=== PATIENT | female | born 1935 | race Two or more races ===

== ENCOUNTER → 2022-09-29 | Outpatient (CLI) | payer MEDICARE ==
[~2022-09-29] MED LIST: SODIUM CHLORIDE 0.9% 500 ML 500 ML in EMPTY BAG 1 BAG IV PRN; ZOLEDRONIC ACID 5 MG in SODIUM CHLORIDE 0.9% 100 ML IV NR
[2022-09-29 14:31] VITALS: BP 124/82; PULSE 106; RESP 16; TEMP 97.8
== END ==
LOC: PROCWHC3 13:59
PROVIDERS: ATTEND Family Medicine
DX: M81.0 Age-related osteoporosis without current pathological fracture (principal)
CPT/HCPCS: 96365; J3489

== ENCOUNTER 2023-02-10 13:44 | Inpatient (IN) | payer MEDICARE ==
--- NOTE | 2023-02-10 14:32 | ED ---
General Adult HPI - General Chief complaint: Chest Pain Stated complaint: Chest Pain Time Seen by Provider: 02/10/23 13:46 Source: EMS Mode of arrival: EMS Limitations: no limitations - History of Present Illness Initial comments: Dictation was produced using [employer] dictation software. please excuse any grammatical, word or spelling errors. Chief Complaint: 87-year-old female presents to the ER for chest pain History of Present Illness: 87-year-old female presents with chest pain. Patient is a poor historian. She is brought in from home by EMS. Patient states she called EMS because her chest hurting. Patient describes that several months ago she had some sort of rib surgery and she is unable to explain what the procedure was. States that she has pain to her substernal and left anterior chest. Denies any diaphoresis or nausea. EMS reports that they provided patient with aspirin and nitroglycerin. Patient does not say if her symptoms improved after the nitro. Denies any fever or constitutional symptoms. The ROS documented in this emergency department record has been reviewed and confirmed by me. Those systems with pertinent positive or negative responses have been documented in the HPI. All other systems are other negative and/or noncontributory. - Related Data Home Medications Medication Instructions Recorded Confirmed Apixaban [Eliquis] 2.5 mg PO BID 09/29/22 02/10/23 Furosemide [Lasix] 20 mg PO DAILY 09/29/22 02/10/23 Levothyroxine Sodium 112 mcg PO DAILY 09/29/22 02/10/23 Liothyronine Sodium [Cytomel] 5 mcg PO DAILY 09/29/22 02/10/23 Metoprolol Tartrate 25 mg PO BID 09/29/22 02/10/23 Montelukast [Singulair] 10 mg PO DAILY 09/29/22 02/10/23 Nitroglycerin 0.4 mg SL DIRECTED PRN 09/29/22 02/10/23 Potassium Chloride ER [K-Dur 10] 10 meq PO DAILY 09/29/22 02/10/23 Sertraline [Zoloft] 100 mg PO DAILY 09/29/22 02/10/23 Zoledronic Acid/Mannitol-Water 5 mg IV Q365D 09/29/22 02/10/23 [Reclast 5 mg/100 ml Solution] Albuterol Inhaler [Ventolin Hfa 2 puff INHALATION RT-QID PRN 02/10/23 02/10/23 Inhaler] HYDROcodone/APAP 5-325MG [[place] 1 tab PO DAILY PRN 02/10/23 02/10/23 5-325] Isosorbide Mononitrate ER [Imdur] 30 mg PO BID 02/10/23 02/10/23 Allergies Allergy/AdvReac Type Severity Reaction Status Date / Time Iodinated Contrast Media Allergy Unknown Verified 02/10/23 14:56 sulfamethoxazole Allergy Unknown Verified 02/10/23 14:56 [From Bactrim] trimethoprim [From Bactrim] Allergy Unknown Verified 02/10/23 14:56 Review of Systems ROS Statement: Those systems with pertinent positive or pertinent negative responses have been documented in the HPI. ROS Other: All systems not noted in ROS Statement are negative. Past Medical History Past Medical History: Atrial Fibrillation, Coronary Artery Disease (CAD), Hypertension, Myocardial Infarction ([place]) History of Any Multi-Drug Resistant Organisms: None Reported Past Surgical History: Appendectomy, Cholecystectomy, Heart Catheterization With Stent Additional Past Surgical History / Comment(s): back surgery Past Psychological History: No Psychological Hx Reported Smoking Status: Never smoker Past Alcohol Use History: None Reported Past Drug Use History: None Reported General Exam - General Exam Comments Initial Comments: PHYSICAL EXAM: General Impression: Alert and oriented x3/4, not in acute distress HEENT: Normocephalic atraumatic, extra-ocular movements intact, pupils equal and reactive to light bilaterally, mucous membranes moist. Cardiovascular: Heart regular rate and rhythm Chest: Able to complete full sentences, no retractions, no tachypnea Abdomen: abdomen soft, non-tender, non-distended, no organomegaly Musculoskeletal: Pulses present and equal in all extremities, no peripheral edema Motor: no focal deficits noted Neurological: CN II-XII grossly intact, no focal motor or sensory deficits noted Skin: Intact with no visualized rashes Psych: Normal affect and mood Limitations: no limitations Course Vital Signs 02/10/23 13:48 Temperature 97.7 F Pulse Rate 102 H Respiratory 20 Rate Blood Pressure 144/94 O2 Sat by Pulse 96 Oximetry Medical Decision Making - Medical Decision Making My EKG interpretation: Ventricular rate 97, A. fib, QRS I4, QTC 420. No NE p rolongation, no QTC prolongation, no ST or T-wave changes noted. No old EKG for comparison. Overall, this EKG is unremarkable Was pt. sent in by a medical professional or institution (, [facility], [employer]ER, urgent care, hospital, or fci...) When possible be specific @ -No Did you speak to anyone other than the patient for history (EMS, parent, family, police, friend...)? What history was obtained from this source @ -EMS states the patient is brought here for chest pain Did you review nursing and triage notes (agree or disagree)? Why? @ -I reviewed and agree with nursing and triage notes Were old charts reviewed (outside hosp., previous admission, EMS record, old EKG, old radiological studies, urgent care reports/EKG's, fci records)? Report findings @ -No old charts were reviewed Differential Diagnosis (chest pain, altered mental status, abdominal pain women, abdominal pain men, vaginal bleeding, musculoskeletal, weakness, fever, dyspnea, syncope, headache, dizziness, GI bleed, back pain, seizure, CVA, palpatations, mental health)? @ -Differential Chest Pain: Stable Angina, Unstable Angina, STEMI, NSTEMI Aortic Dissection, Pneumothorax, Musculoskeletal, Esophageal Spasm GERD, Cholecystitis, Pancreatitis, Zoster, this is not meant to be an all-inclusive list. EKG interpreted by me (3pts min.). @ -see above X-rays interpreted by me (1pt min.). @ -2 view chest x-ray is unremarkable for any acute processes CT interpreted by me (1pt min.). @ -None done U/S interpreted by me (1pt. min.). @ -None done What testing was considered but not performed or refused? (CT, X-rays, U/S, labs)? Why? @ -None What meds were considered but not given or refused? Why? @ -None Did you discuss the management of the patient with other professionals (professionals i.e. [facility], [employer]ACHINE [employer]ER, lab, RT, psych nurse, social economist, manager presentation, teacher, security officer, caser)? Give summary @ -Discussed with hospitalist for admission Was smoking cessation discussed for >3mins.? @ -No Was critical care preformed (if so, how long)? @ -No Were there social determinants of health that impacted care today? How? (Homelessness, low income, unemployed, alcoholism, drug addiction, transportation, low edu. Level, literacy, decrease access to med. care, retirement, rehab)? @ -No Was there de-escalation of care discussed even if they declined (Discuss DNR or withdrawal of care, Hospice)? DNR status @ -No What co-morbidities impacted this encounter? (DM, HTN, Smoking, COPD, CAD, Cancer, CVA, ARF, Chemo, Hep., AIDS, mental health diagnosis, sleep apnea, morbid obesity)? @ -None Was patient admitted / discharged? Hospital course, mention meds given and route, prescriptions, significant lab abnormalities, going to OR and other pertinent info. @ -87-year-old female who is a unreliable historian presents to the ER for chest pain. See atypical with typical features. Patient will appear at bed side. Vital signs are stable. EKG is unremarkable. Laboratory evaluation obtained. CBC, coag panel metabolic panel is unremarkable. Troponin is negative. Patient reevaluated at bedside at 3:15 PM she is found to be stable medical condition. Patient be admitted observation for cardiac monitoring and cardiology consultation. Undiagnosed new problem with uncertain prognosis? @ -No Drug Therapy requiring intensive monitoring for toxicity (Heparin, Nitro, Insulin, Cardizem)? @ -No Were any procedures done? @ -No Diagnosis/symptom? Acute, or Chronic, or Acute on Chronic? Uncomplicated (without systemic symptoms) or Complicated (systemic symptoms)? @ -Chest pain Side effects of treatment? @ -No Exacerbation, Progression, or Severe Exacerbation? @ -No Poses a threat to life or bodily function? How? (Chest pain, [place], [place], pneumonia, PE, COPD, DKA, ARF, appy, cholecystitis, CVA, Diverticulitis, Homicidal, Suicidal, threat to staff... and all critical care pts) @ -yes - Lab Data Result diagrams: 02/10/23 14:20 02/10/23 14:20 Lab Results 02/10/23 02/10/23 02/10/23 Range/Units 14:20 14:20 14:20 WBC 5.7 (3.8-10.6) k/uL RBC 4.60 (3.80-5.40) m/uL Hgb 14.2 (11.4-16.0) gm/dL Hct 43.6 (34.0-46.0) % MCV 94.6 (80.0-100.0) fL MCH 30.9 (25.0-35.0) pg MCHC 32.7 (31.0-37.0) g/dL RDW 13.9 (11.5-15.5) % Plt Count 275 (150-450) k/uL MPV 8.8 Neutrophils % 68 % Lymphocytes % 20 % Monocytes % 6 % Eosinophils % 4 % Basophils % 0 % Neutrophils # 3.8 (1.3-7.7) k/uL Lymphocytes # 1.1 (1.0-4.8) k/uL Monocytes # 0.3 (0-1.0) k/uL Eosinophils # 0.2 (0-0.7) k/uL Basophils # 0.0 (0-0.2) k/uL PT 11.0 (10.0-12.5) sec INR 1.0 (<1.2) APTT 28.9 (22.0-30.0) sec Sodium 141 (137-145) mmol/L Potassium 4.4 (3.5-5.1) mmol/L Chloride 106 (98-107) mmol/L Carbon Dioxide 25 (22-30) mmol/L Anion Gap 10 mmol/L BUN 13 (7-17) mg/dL Creatinine 0.61 (0.52-1.04) mg/dL Est GFR (CKD-EPI)AfAm >90 (>60 ml/min/1.73 sqM) Est GFR (CKD-EPI)NonAf 81 (>60 ml/min/1.73 sqM) Glucose 117 H (74-99) mg/dL Calcium 9.3 (8.4-10.2) mg/dL Magnesium 1.9 (1.6-2.3) mg/dL Total Bilirubin 0.7 (0.2-1.3) mg/dL AST 29 (14-36) U/L ALT 18 (4-34) U/L Alkaline Phosphatase 67 (38-126) U/L Troponin I (0.000-0.034) ng/mL Total Protein 7.1 (6.3-8.2) g/dL Albumin 3.9 (3.5-5.0) g/dL Lipase 77 (23-300) U/L 10/28/23 Range/Units 14:20 WBC (3.8-10.6) k/uL RBC (3.80-5.40) m/uL Hgb (11.4-16.0) gm/dL Hct (34.0-46.0) % MCV (80.0-100.0) fL MCH (25.0-35.0) pg MCHC (31.0-37.0) g/dL RDW (11.5-15.5) % Plt Count (150-450) k/uL MPV Neutrophils % % Lymphocytes % % Monocytes % % Eosinophils % % Basophils % % Neutrophils # (1.3-7.7) k/uL Lymphocytes # (1.0-4.8) k/uL Monocytes # (0-1.0) k/uL Eosinophils # (0-0.7) k/uL Basophils # (0-0.2) k/uL PT (10.0-12.5) sec INR (<1.2) APTT (22.0-30.0) sec Sodium (137-145) mmol/L Potassium (3.5-5.1) mmol/L Chloride (98-107) mmol/L Carbon Dioxide (22-30) mmol/L Anion Gap mmol/L BUN (7-17) mg/dL Creatinine (0.52-1.04) mg/dL Est GFR (CKD-EPI)AfAm (>60 ml/min/1.73 sqM) Est GFR (CKD-EPI)NonAf (>60 ml/min/1.73 sqM) Glucose (74-99) mg/dL Calcium (8.4-10.2) mg/dL Magnesium (1.6-2.3) mg/dL Total Bilirubin (0.2-1.3) mg/dL AST (14-36) U/L ALT (4-34) U/L Alkaline Phosphatase (38-126) U/L Troponin I <0.012 (0.000-0.034) ng/mL Total Protein (6.3-8.2) g/dL Albumin (3.5-5.0) g/dL Lipase (23-300) U/L Disposition Clinical Impression: Chest pain Disposition: ADMITTED IP TO THIS HOSP Condition: Fair Referrals: Yessi Mancia MD [Primary Care Provider] - 1-2 days Decision Time: 15:19
[2023-02-10 14:33] LABS: Basophils % (A) 0 %; Eosinophils # (A) 0.2 k/uL (0-0.7); Eosinophils % (A) 4 %; HCT 43.6 % (34.0-46.0); HGB 14.2 gm/dL (11.4-16.0); Lymphocytes # (A) 1.1 k/uL (1.0-4.8); Lymphocytes % (A) 20 %; MCH 30.9 pg (25.0-35.0); MCHC 32.7 g/dL (31.0-37.0); MCV 94.6 fL (80.0-100.0); Mean Platelet Volume 8.8; Monocytes # (A) 0.3 k/uL (0-1.0); Monocytes % (A) 6 %; Neutrophils # (A) 3.8 k/uL (1.3-7.7); Neutrophils % (A) 68 %; Platelet Count 275 k/uL (150-450); RDW 13.9 % (11.5-15.5); WBC 5.7 k/uL (3.8-10.6)
--- NOTE | 2023-02-10 14:40 | XR ---
EXAMINATION TYPE: XR chest 2V DATE OF EXAM: 02/10/2023 COMPARISON: None INDICATION: Chest pain TECHNIQUE: Frontal and lateral views of the chest are obtained. FINDINGS: The heart size is upper limits of normal. The pulmonary vasculature is normal. The lungs are clear. Stimulator leads are within the thoracic region. IMPRESSION: 1. No acute pulmonary process.
[2023-02-10 14:48] LABS: Partial Thromboplastin Time 28.9 sec (22.0-30.0)
[2023-02-10 14:51] LABS: ALT 18 U/L (4-34); AST 29 U/L (14-36); African American GFR (CKD) >90 (>60 ml/min/1.73 sqM); Albumin 3.9 g/dL (3.5-5.0); Alkaline Phosphatase 67 U/L (38-126); Anion Gap 10 mmol/L; Blood Urea Nitrogen 13 mg/dL (7-17); Calcium 9.3 mg/dL (8.4-10.2); Carbon Dioxide 25 mmol/L (22-30); Chloride 106 mmol/L (98-107); Glucose 117 mg/dL (74-99); Lipase 77 U/L (23-300); Magnesium 1.9 mg/dL (1.6-2.3); Non-African American GFR(CKD) 81 (>60 ml/min/1.73 sqM); Potassium 4.4 mmol/L (3.5-5.1); Sodium 141 mmol/L (137-145); Total Bilirubin 0.7 mg/dL (0.2-1.3); Total Protein 7.1 g/dL (6.3-8.2)
[2023-02-10] MEDS ORDERED: NITROGLYCERIN SL TABS 0.4 MG TAB SUBLINGUAL PRN (15:15)
[2023-02-10] MEDS ORDERED: ALBUTEROL HFA INHALER INHALATION PRN (15:46)
[2023-02-10] MEDS ORDERED: HYDROcodone/APAP 5-325MG 1 EACH TAB PO PRN (15:46)
--- NOTE | 2023-02-10 15:57 | P.HPIM ---
History of Present Illness This is a pleasant 87 years old female with past medical history of Atrial Fibrillation, Coronary Artery Disease status post stenting hypertension, Raul pain is about 8/10 for like sharp. Denies trauma. She can move her arm above her head. Short of breath but no coughing. She has total headache but no dizziness weakness or numbness. No urinary or GI symptoms. no smoking. Vitals stable little tachycardic and 100 to came to down to 82 Chest unremarkable CBC, INR, BMP and liver enzymes and troponin EKG showing atrial fibrillation's at [address]-T changes Chest x-ray: No acute process. Review of Systems Review of systems CONSTITUTIONAL: No fever, no malaise, no fatigue. HEENT: No recent visual problems or hearing problems. Denied any sore throat. CARDIOVASCULAR: No orthopnea, PND, no palpitations, no syncope. PULMONARY: No shortness of breath, no cough, no hemoptysis. GASTROINTESTINAL: No diarrhea, no nausea, no vomiting, no abdominal pain. Normoactive bowel sounds. NEUROLOGICAL: No headaches, no weakness, no numbness. HEMATOLOGICAL: Denies any bleeding or petechiae. GENITOURINARY: Denies any burning micturition, frequency, or urgency. MUSCULOSKELETAL/RHEUMATOLOGICAL: Denies any joint pain, swelling, or any muscle pain. ENDOCRINE: Denies any polyuria or polydipsia. Past Medical History Past Medical History: Atrial Fibrillation, Coronary Artery Disease (CAD), Hypertension, Myocardial Infarction ([place]) History of Any Multi-Drug Resistant Organisms: None Reported Past Surgical History: Appendectomy, Cholecystectomy, Heart Catheterization With Stent Additional Past Surgical History / Comment(s): back surgery Past Psychological History: No Psychological Hx Reported Smoking Status: Never smoker Past Alcohol Use History: None Reported Past Drug Use History: None Reported Medications and Allergies Home Medications Medication Instructions Recorded Confirmed Type Apixaban [Eliquis] 2.5 mg PO BID 09/29/22 02/10/23 History Furosemide [Lasix] 20 mg PO DAILY 09/29/22 02/10/23 History Levothyroxine Sodium 112 mcg PO DAILY 09/29/22 02/10/23 History Liothyronine Sodium [Cytomel] 5 mcg PO DAILY 09/29/22 02/10/23 History Metoprolol Tartrate 25 mg PO BID 09/29/22 02/10/23 History Montelukast [Singulair] 10 mg PO DAILY 09/29/22 02/10/23 History Nitroglycerin 0.4 mg SL DIRECTED PRN 09/29/22 02/10/23 History Potassium Chloride ER [K-Dur 10] 10 meq PO DAILY 09/29/22 02/10/23 History Sertraline [Zoloft] 100 mg PO DAILY 09/29/22 02/10/23 History Zoledronic Acid/Mannitol-Water 5 mg IV Q365D 09/29/22 02/10/23 History [Reclast 5 mg/100 ml Solution] Albuterol Inhaler [Ventolin Hfa 2 puff INHALATION RT-QID PRN 02/10/23 02/10/23 History Inhaler] HYDROcodone/APAP 5-325MG [[place] 1 tab PO DAILY PRN 02/10/23 02/10/23 History 5-325] Isosorbide Mononitrate ER [Imdur] 30 mg PO BID 02/10/23 02/10/23 History Allergies Allergy/AdvReac Type Severity Reaction Status Date / Time Iodinated Contrast Media Allergy Unknown Verified 02/10/23 14:56 sulfamethoxazole Allergy Unknown Verified 02/10/23 14:56 [From Bactrim] trimethoprim [From Bactrim] Allergy Unknown Verified 02/10/23 14:56 Physical Exam Vitals: Vital Signs Temp Pulse Resp BP Pulse Ox 02/10/23 15:34 82 20 149/98 95 02/10/23 13:48 97.7 F 102 H 20 144/94 96 Intake and Output 02/10/23 02/10/23 02/10/23 06:59 14:59 22:59 Other: Weight 81.647 kg GENERAL: The patient is alert and oriented x3, not in any acute distress. Well developed, well nourished. HEENT: Pupils are round and equally reacting to light. EOMI. No scleral icterus. No conjunctival pallor. Normocephalic, atraumatic. No pharyngeal erythema. No thyromegaly. CARDIOVASCULAR: S1 and S2 present. No murmurs, rubs, or gallops. PULMONARY: Chest is clear to auscultation, no wheezing , no crackles. ABDOMEN: Soft, nontender, nondistended, normoactive bowel sounds. No palpable organomegaly. MUSCULOSKELETAL: No joint swelling or deformity. EXTREMITIES: No cyanosis, clubbing, or pedal edema. NEUROLOGICAL: Gross neurological examination did not reveal any focal deficits. SKIN: No rashes. no petechiae. Results CBC & Chem 7: 02/10/23 14:20 02/10/23 14:20 Labs: Abnormal Lab Results - Last 24 Hours (Table) 02/10/23 Range/Units 14:20 Glucose 117 H (74-99) mg/dL Assessment and Plan Assessment: Chest pain left shoulder pain/,could be musculoskeletal. rule out cardiac causes Hypertension Chronic atrial fibrillation on a blood thinner at home History of coronary artery disease Plan: Continue with aspirin Echocardiogram Cardiology consult patient is already on eliquis Labs and medication were reviewed.. Continue same treatment. Continue with symptomatic treatment. Resume home medication. Monitor labs and vitals. DVT and GI prophylaxis. Further recommendations as per clinical course of the patient DVT prophylaxis: eliquis GI Prophylaxis: Pepcid Prognosis is guarded
[2023-02-10] MEDS: APIXABAN 2.5 MG TABLET PO SCH (21:58)
[2023-02-10] MEDS: ISOSORBIDE MONONITRATE ER 30 MG TAB.ER.24H PO SCH (21:58)
[2023-02-10] MEDS: METOPROLOL TARTRATE 25 MG TAB PO SCH (21:59)
[2023-02-11] MEDS: LEVOTHYROXINE 112 MCG TAB PO SCH (05:43)
[2023-02-11] MEDS ORDERED: ASPIRIN 325 MG TAB PO SCH (09:00)
[2023-02-11] MEDS: SERTRALINE 100 MG TAB PO SCH (09:09)
[2023-02-11] MEDS: POTASSIUM CHLORIDE ER 10 MEQ TAB.ER.PRT PO SCH (09:09)
[2023-02-11] MEDS: ISOSORBIDE MONONITRATE ER 30 MG TAB.ER.24H PO SCH ×2 (09:10→20:50)
[2023-02-11] MEDS: METOPROLOL TARTRATE 25 MG TAB PO SCH ×2 (09:10→18:47)
[2023-02-11] MEDS: MONTELUKAST 10 MG TAB PO SCH (09:10)
[2023-02-11] MEDS: APIXABAN 2.5 MG TABLET PO SCH ×2 (09:10→20:50)
[2023-02-11] MEDS: FAMOTIDINE 20 MG/2 ML VIAL IV SCH (09:10)
[2023-02-11] MEDS: FUROSEMIDE 20 MG TAB PO SCH (09:10)
[2023-02-11 09:39] LABS: Chol/HDL Ratio 2.84 Ratio; LDL Cholesterol,Calculated 114.7 mg/dL (0.0-131.0)
--- NOTE | 2023-02-11 12:00 | P.CRDCN ---
History of Present Illness Consult date: 02/11/23 Consult reason: chest pain Chief complaint: left shoulder pain History of present illness: History of present illness: Patient is a pleasant 87-year-old female with significant past medical history of atrial fibrillation on Eliquis, CAD status post PCI 5 we'll she was in [place] years ago, hypertension presented to the emergency department with complaints of chest pain. Patient is a poor historian and has what appears to be memory issues. She does report that she has having left shoulder pains that come and go and radiates to her back. She is unable to provide any further details regarding her pain. She has been feeling fatigued. She denies any shortness of breath, dizziness, syncope. EKG shows atrial fibrillation 83 beats per minutes. Chest x-ray with no acute findings. Labs reviewed: Troponin negative 3, potassium 4.4, creatinine 0.61, LDL 114, lipase 77. Per ED report patient was given aspirin and nitroglycerin by EMS however patient was unable to state if her symptoms improved. REVIEW OF SYSTEMS: No fever or chills. No cough or expectoration. No diaphoresis. Patient denies headache, dizziness, blurred vision, double vision. Patient denies any stomach discomfort. No nausea, vomiting. No hematochezia. No hematemesis. Denies any black stools or blood in his stools. Denies dysuria or hematuria. No muscle weakness or numbness. No chest pain or pressure. Reports left shoulder pain. PHYSICAL EXAMINATION: This is a 87-year-old female in no apparent distress at the time of my examination. HEENT: Head is atraumatic, normocephalic. Pupils are equal, round. Sclerae anicteric. Conjunctivae are clear. Mucous membranes of the mouth are moist. Neck is supple. There is no jugular venous distention. No carotid bruit is heard. CHEST EXAMINATION: Lungs are clear to auscultation. No chest wall tenderness is noted on palpation or with deep breathing. HEART EXAMINATION: Heart regular rate and rhythm. S1, S2 heard. No murmurs, gallops or rub. ABDOMEN: Soft, nontender. Bowel sounds are heard. EXTREMITIES: 2+ peripheral pulses with no evidence of peripheral edema and no calf tenderness noted. She does have left shoulder tenderness on exam. NEUROLOGIC EXAMINATION: Patient is awake, alert, poor recall of events and history. IMPRESSION AND PLAN: Paroxysmal atrial fibrillation, currently in A. fib, rate controlled CAD status post multiple stents done in [place] Hypertension Chest pain, atypical Left shoulder pain PLAN: Cardiac enzymes negative 3. Continue current regimen. Today pain appears to be more left shoulder radiating to her back, pain is reproducible on exam. We will check echocardiogram to evaluate heart function and structure. Continue to monitor overnight. Possible discharge tomorrow if echo unremarkable patient remains stable. I am dictating on behalf of Dr. Chano Edmondson's history/physical and assessment/plan. Past Medical History Past Medical History: Atrial Fibrillation, Coronary Artery Disease (CAD), Hy pertension, Myocardial Infarction (VT) Last Myocardial Infarction Date:: n/a History of Any Multi-Drug Resistant Organisms: None Reported Past Surgical History: Appendectomy, Cholecystectomy, Heart Catheterization With Stent Additional Past Surgical History / Comment(s): back surgery Date of Last Stent Placement:: n/a Past Psychological History: No Psychological Hx Reported Smoking Status: Never smoker Past Alcohol Use History: None Reported Past Drug Use History: None Reported Medications and Allergies Home Medications Medication Instructions Recorded Confirmed Type Apixaban [Eliquis] 2.5 mg PO BID 09/29/22 02/10/23 History Furosemide [Lasix] 20 mg PO DAILY 09/29/22 02/10/23 History Levothyroxine Sodium 112 mcg PO DAILY 09/29/22 02/10/23 History Liothyronine Sodium [Cytomel] 5 mcg PO DAILY 09/29/22 02/10/23 History Metoprolol Tartrate 25 mg PO BID 09/29/22 02/10/23 History Montelukast [Singulair] 10 mg PO DAILY 09/29/22 02/10/23 History Nitroglycerin 0.4 mg SL DIRECTED PRN 09/29/22 02/10/23 History Potassium Chloride ER [K-Dur 10] 10 meq PO DAILY 09/29/22 02/10/23 History Sertraline [Zoloft] 100 mg PO DAILY 09/29/22 02/10/23 History Zoledronic Acid/Mannitol-Water 5 mg IV Q365D 09/29/22 02/10/23 History [Reclast 5 mg/100 ml Solution] Albuterol Inhaler [Ventolin Hfa 2 puff INHALATION RT-QID PRN 02/10/23 02/10/23 History Inhaler] Cetirizine HCl [Zyrtec] 10 mg PO DAILY 02/10/23 02/10/23 History Cholecalciferol [Vitamin D3 (25 50 mcg PO DAILY 02/10/23 02/10/23 History Mcg = 1000 Iu)] Cyanocobalamin (Vitamin B-12) 1,000 mcg PO DAILY 02/10/23 02/10/23 History [Vitamin B-12] Elderberry 1,000mg 1,000 mg PO DAILY 02/10/23 02/10/23 History HYDROcodone/APAP 5-325MG [[place] 0.5 - 1 tab PO DAILY PRN 02/10/23 02/10/23 History 5-325] Isosorbide Mononitrate ER [Imdur] 30 mg PO BID 02/10/23 02/10/23 History Multivitamins, Thera [Multivitamin 1 tab PO DAILY 02/10/23 02/10/23 History (formulary)] Pantoprazole [Protonix] 40 mg PO DAILY PRN 02/10/23 02/10/23 History Vit C/E/Zn/Coppr/Lutein/Zeaxan 1 cap PO BID 02/10/23 02/10/23 History [Preservision Areds 2 Softgel] Allergies Allergy/AdvReac Type Severity Reaction Status Date / Time Iodinated Contrast Media Allergy Unknown Verified 02/10/23 14:56 sulfamethoxazole Allergy Unknown Verified 02/10/23 14:56 [From Bactrim] trimethoprim [From Bactrim] Allergy Unknown Verified 02/10/23 14:56 Physical Exam Vitals: Vital Signs Temp Pulse Pulse Resp BP BP Pulse Ox 02/11/23 07:00 98.3 F 63 16 140/81 95 02/11/23 02:01 97.8 F 66 16 123/71 95 02/11/23 01:10 16 02/10/23 22:53 97.7 F 81 16 154/85 95 02/10/23 22:00 95 18 170/98 97 02/10/23 20:00 95 18 174/95 97 02/10/23 18:39 84 20 174/95 96 02/10/23 15:34 82 20 149/98 95 02/10/23 13:48 97.7 F 102 H 20 144/94 96 Intake and Output 02/10/23 02/11/23 02/11/23 22:59 06:59 14:59 Other: Voiding Method Toilet # Voids 2 Weight 81.647 kg Results 02/10/23 14:20 02/10/23 14:20 Cardiac Enzymes 02/10/23 02/10/23 02/10/23 Range/Units 14:20 14:20 15:49 AST 29 (14-36) U/L Troponin I <0.012 <0.012 (0.000-0.034) ng/mL 02/10/23 Range/Units 18:09 AST (14-36) U/L Troponin I <0.012 (0.000-0.034) ng/mL Coagulation 02/10/23 Range/Units 14:20 PT 11.0 (10.0-12.5) sec APTT 28.9 (22.0-30.0) sec Lipids 02/11/23 Range/Units 05:38 Triglycerides 130.00 (0.00-149.00) mg/dL Cholesterol 217.00 H (0.00-200.00) mg/dL HDL Cholesterol 76.30 H (40.00-60.00) mg/dL Cholesterol/HDL Ratio 2.84 Ratio CBC 02/10/23 Range/Units 14:20 WBC 5.7 (3.8-10.6) k/uL RBC 4.60 (3.80-5.40) m/uL Hgb 14.2 (11.4-16.0) gm/dL Hct 43.6 (34.0-46.0) % Plt Count 275 (150-450) k/uL Comprehensive Metabolic Panel 02/10/23 Range/Units 14:20 Sodium 141 (137-145) mmol/L Potassium 4.4 (3.5-5.1) mmol/L Chloride 106 (98-107) mmol/L Carbon Dioxide 25 (22-30) mmol/L BUN 13 (7-17) mg/dL Creatinine 0.61 (0.52-1.04) mg/dL Glucose 117 H (74-99) mg/dL Calcium 9.3 (8.4-10.2) mg/dL AST 29 (14-36) U/L ALT 18 (4-34) U/L Alkaline Phosphatase 67 (38-126) U/L Total Protein 7.1 (6.3-8.2) g/dL Albumin 3.9 (3.5-5.0) g/dL Current Medications Generic Name Dose Route Start Last Admin Trade Name Freq PRN Reason Stop Dose Admin Hydrocodone Bitart/Acetaminophen 1 each 02/10/23 15:46 02/10/23 23:29 Hydrocodone/Apap 5-325mg 1 Each Tab PO 1 each DAILY PRN Administration Pain Albuterol Sulfate 2 puff 02/10/23 15:46 Albuterol Hfa Inhaler INHALATION RT-QID PRN Shortness Of Breath Apixaban 2.5 mg 02/10/23 21:00 02/11/23 09:10 Apixaban 2.5 Mg Tablet PO 2.5 mg BID JUAN CARLOS Administration Protocol Aspirin 325 mg 02/11/23 09:00 02/11/23 09:10 Aspirin 325 Mg Tab PO 325 mg DAILY JUAN CARLOS Administration Famotidine 20 mg 02/11/23 09:00 02/11/23 09:10 Famotidine 20 Mg/2 Ml Vial IV 20 mg DAILY JUAN CARLOS Administration Furosemide 20 mg 02/11/23 09:00 02/11/23 09:10 Furosemide 20 Mg Tab PO 20 mg DAILY JUAN CARLOS Administration Isosorbide Mononitrate 30 mg 02/10/23 21:00 02/11/23 09:10 Isosorbide Mononitrate Er 30 Mg Tab.Er.24h PO 30 mg BID JUAN CARLOS Administration Levothyroxine Sodium 112 mcg 02/11/23 06:30 02/11/23 05:43 Levothyroxine 112 Mcg Tab PO 112 mcg DAILY@0630 JUAN CARLOS Administration Metoprolol Tartrate 25 mg 02/10/23 21:00 02/11/23 09:10 Metoprolol Tartrate 25 Mg Tab PO 25 mg BID JUAN CARLOS Administration Montelukast Sodium 10 mg 02/11/23 09:00 02/11/23 09:10 Montelukast 10 Mg Tab PO 10 mg DAILY JUAN CARLOS Administration Nitroglycerin 0.4 mg 02/10/23 15:15 02/10/23 18:40 Nitroglycerin Sl Tabs 0.4 Mg Tab SUBLINGUAL 0.4 mg Q5M PRN Administration Chest Pain Potassium Chloride 10 meq 02/11/23 09:00 02/11/23 09:09 Potassium Chloride Er 10 Meq Tab.Er.Prt PO 10 meq DAILY JUAN CARLOS Administration Sertraline HCl 100 mg 02/11/23 09:00 02/11/23 09:09 Sertraline 100 Mg Tab PO 100 mg DAILY JUAN CARLOS Administration Intake and Output 02/10/23 02/11/23 02/11/23 22:59 06:59 14:59 Other: Voiding Method Toilet # Voids 2 Weight 81.647 kg 02/10/23 14:20 02/10/23 14:20
--- NOTE | 2023-02-11 14:14 | P.PN ---
Subjective This is a pleasant 87 years old female with past medical history of Atrial Fibrillation, Coronary Artery Disease status post stenting hypertension, Raul pain is about 8/10 for like sharp. Denies trauma. She can move her arm above her head. Short of breath but no coughing. She has total headache but no dizziness weakness or numbness. No urinary or GI symptoms. no smoking. Vitals stable little tachycardic and 100 to came to down to 82 Chest unremarkable CBC, INR, BMP and liver enzymes and troponin EKG showing atrial fibrillation's at [address]-T changes Chest x-ray: No acute process. 02/11/2023 Patient feels better. No chest pain. left shoulder pain looks Better about 6/10. She can move her arm freely even above her head. no new complaint. Cardiology team recommended echocardiogram and possible discharge tomorrow I requested placement, PT/OT is requested Objective - Vital Signs Vital signs: Vital Signs Temp 98.3 F 02/11/23 07:00 Pulse 63 02/11/23 07:00 Resp 16 02/11/23 07:00 BP 140/81 02/11/23 07:00 Pulse Ox 95 02/11/23 07:00 FiO2 Intake & Output 02/10/23 02/11/23 02/11/23 18:59 06:59 18:59 Weight 81.647 kg Other: Voiding Method Toilet # Voids 2 - Exam GENERAL: The patient is alert and oriented x3, not in any acute distress. Well d eveloped, well nourished. HEENT: Pupils are round and equally reacting to light. EOMI. No scleral icterus. No conjunctival pallor. Normocephalic, atraumatic. No pharyngeal erythema. No thyromegaly. CARDIOVASCULAR: S1 and S2 present. No murmurs, rubs, or gallops. PULMONARY: Chest is clear to auscultation, no wheezing , no crackles. ABDOMEN: Soft, nontender, nondistended, normoactive bowel sounds. No palpable organomegaly. MUSCULOSKELETAL: No joint swelling or deformity. EXTREMITIES: No cyanosis, clubbing, or pedal edema. NEUROLOGICAL: Gross neurological examination did not reveal any focal deficits. SKIN: No rashes. no petechiae. - Labs CBC & Chem 7: 02/10/23 14:20 10/28/23 14:20 Labs: Abnormal Lab Results - Last 24 Hours (Table) 02/10/23 02/11/23 Range/Units 14:20 05:38 Glucose 117 H (74-99) mg/dL Cholesterol 217.00 H (0.00-200.00) mg/dL HDL Cholesterol 76.30 H (40.00-60.00) mg/dL Assessment and Plan Assessment: Chest pain left shoulder pain/,could be musculoskeletal. 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 Continue same treatment. Continue with symptomatic treatment. Resume home medication. Monitor labs and vitals. DVT and GI prophylaxis. Further recommendations as per clinical course of the patient DVT prophylaxis: eliquis GI Prophylaxis: Pepcid Prognosis is guarded
[2023-02-12] MEDS: LEVOTHYROXINE 112 MCG TAB PO SCH (05:39)
[2023-02-12] MEDS: ISOSORBIDE MONONITRATE ER 30 MG TAB.ER.24H PO SCH ×2 (08:29→20:08)
[2023-02-12] MEDS: METOPROLOL TARTRATE 25 MG TAB PO SCH ×2 (08:29→18:55)
[2023-02-12] MEDS: ASPIRIN 81 MG PO SCH (08:29)
[2023-02-12] MEDS: MONTELUKAST 10 MG TAB PO SCH (08:29)
[2023-02-12] MEDS: FUROSEMIDE 20 MG TAB PO SCH (08:30)
[2023-02-12] MEDS: POTASSIUM CHLORIDE ER 10 MEQ TAB.ER.PRT PO SCH (08:30)
[2023-02-12] MEDS: FAMOTIDINE 20 MG/2 ML VIAL IV SCH (08:30)
[2023-02-12] MEDS: APIXABAN 2.5 MG TABLET PO SCH ×2 (08:30→20:08)
[2023-02-12] MEDS: SERTRALINE 100 MG TAB PO SCH (08:30)
--- NOTE | 2023-02-12 12:29 | P.PN ---
Subjective This is a pleasant 87 years old female with past medical history of Atrial Fibrillation, Coronary Artery Disease status post stenting hypertension, Raul pain is about 8/10 for like sharp. Denies trauma. She can move her arm above her head. Short of breath but no coughing. She has total headache but no dizziness weakness or numbness. No urinary or GI symptoms. no smoking. Vitals stable little tachycardic and 100 to came to down to 82 Chest unremarkable CBC, INR, BMP and liver enzymes and troponin EKG showing atrial fibrillation's at [address]-T changes Chest x-ray: No acute process. 02/11/2023 Patient feels better. No chest pain. left shoulder pain looks Better about 6/10. She can move her arm freely even above her head. no new complaint. 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 Could be suprapubic pain. Patient also was noticed to be tachypneic. As per staff he went to the bathroom about 4-5 times but she had occasional little amount of loose stool. She denies chest pain or coughing today. Review of systems CONSTITUTIONAL: No fever, no malaise, no fatigue. HEENT: No recent visual problems or hearing problems. Denied any sore throat. CARDIOVASCULAR: No orthopnea, PND, no palpitations, no syncope. PULMONARY: no cough, no hemoptysis. GASTROINTESTINAL: No diarrhea, no nausea, no vomiting, no abdominal pain. Normoactive bowel sounds. NEUROLOGICAL: No headaches, no weakness, no numbness. HEMATOLOGICAL: Denies any bleeding or petechiae. GENITOURINARY: Denies any burning micturition, frequency, or urgency. MUSCULOSKELETAL/RHEUMATOLOGICAL: Denies any joint pain, swelling, or any muscle pain. ENDOCRINE: Denies any polyuria or polydipsia. Active Medications Generic Name Dose Route Start Last Admin Trade Name Freq PRN Reason Stop Dose Admin Hydrocodone Bitart/Acetaminophen 1 each 02/10/23 15:46 02/10/23 23:29 Hydrocodone/Apap 5-325mg 1 Each Tab PO 1 each DAILY PRN Administration Pain Albuterol Sulfate 2 puff 02/10/23 15:46 Albuterol Hfa Inhaler INHALATION RT-QID PRN Shortness Of Breath Apixaban 2.5 mg 02/10/23 21:00 02/12/23 08:30 Apixaban 2.5 Mg Tablet PO 2.5 mg BID JUAN CARLOS Administration Protocol Aspirin 81 mg 02/12/23 09:00 02/12/23 08:29 Aspirin 81 Mg PO 81 mg DAILY JUAN CARLOS Administration Famotidine 20 mg 02/11/23 09:00 02/12/23 08:30 Famotidine 20 Mg/2 Ml Vial IV 20 mg DAILY JUAN ACRLOS Administration Furosemide 20 mg 02/11/23 09:00 02/12/23 08:30 Furosemide 20 Mg Tab PO 20 mg DAILY JUAN CARLOS Administration Isosorbide Mononitrate 30 mg 02/10/23 21:00 02/12/23 08:29 Isosorbide Mononitrate Er 30 Mg Tab.Er.24h PO 30 mg BID JUAN CARLOS Administration Levothyroxine Sodium 112 mcg 02/11/23 06:30 02/12/23 05:39 Levothyroxine 112 Mcg Tab PO 112 mcg DAILY@0630 JUAN CARLOS Administration Metoprolol Tartrate 25 mg 02/10/23 21:00 02/12/23 08:29 Metoprolol Tartrate 25 Mg Tab PO 25 mg BID JUAN CARLOS Administration Montelukast Sodium 10 mg 02/11/23 09:00 02/12/23 08:29 Montelukast 10 Mg Tab PO 10 mg DAILY JUAN CARLOS Administration Nitroglycerin 0.4 mg 02/10/23 15:15 02/10/23 18:40 Nitroglycerin Sl Tabs 0.4 Mg Tab SUBLINGUAL 0.4 mg Q5M PRN Administration Chest Pain Potassium Chloride 10 meq 02/11/23 09:00 02/12/23 08:30 Potassium Chloride Er 10 Meq Tab.Er.Prt PO 10 meq DAILY JUAN CARLOS Administration Sertraline HCl 100 mg 02/11/23 09:00 02/12/23 08:30 Sertraline 100 Mg Tab PO 100 mg DAILY JUAN CARLOS Administration Objective - Vital Signs Vital signs: Vital Signs Temp 97.3 F L 02/12/23 07:20 Pulse 76 02/12/23 07:20 Resp 18 02/12/23 08:00 BP 123/73 02/12/23 07:20 Pulse Ox 93 L 02/12/23 07:20 FiO2 Intake & Output 02/11/23 02/12/23 02/12/23 18:59 06:59 18:59 Intake Total 118 Balance 118 Intake: Oral 118 Other: Voiding Method Toilet Toilet Toilet # Voids 1 1 - Exam GENERAL: The patient is alert and oriented x3, not in any acute distress. Well developed, well nourished. HEENT: Pupils are round and equally reacting to light. EOMI. No scleral icterus. No conjunctival pallor. Normocephalic, atraumatic. No pharyngeal erythema. No thyromegaly. CARDIOVASCULAR: S1 and S2 present. No murmurs, rubs, or gallops. PULMONARY: Chest is clear to auscultation, no wheezing , no crackles. ABDOMEN: Soft, nontender, nondistended, normoactive bowel sounds. No palpable organomegaly. MUSCULOSKELETAL: No joint swelling or deformity. EXTREMITIES: No cyanosis, clubbing, or pedal edema. NEUROLOGICAL: Gross neurological examination did not reveal any focal deficits. SKIN: No rashes. no petechiae. - Labs CBC & Chem 7: 02/10/23 14:20 02/10/23 14:20 Assessment and Plan Assessment: Chest pain left shoulder pain/,could be musculoskeletal. 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 Continue same treatment. Continue with symptomatic treatment. Resume home medication. Monitor labs and vitals. DVT and GI prophylaxis. Further recommendations as per clinical course of the patient DVT prophylaxis: eliquis GI Prophylaxis: Pepcid Prognosis is guarded
--- NOTE | 2023-02-12 13:09 | XR ---
EXAMINATION TYPE: XR chest 1V DATE OF EXAM: 02/12/2023 12:49 PM CLINICAL INDICATION:Female, 87 years old with history of tachypnea; [facility] COMPARISON: Chest radiographs from 02/02/2023. TECHNIQUE: XR chest 1V Frontal view of the chest. FINDINGS: Lungs/Pleura: Prominent interstitial lung markings are seen scattered throughout the lungs with jamie ening of the diaphragm and increased lucency of the lung apices. No evidence of focal consolidation, pneumothorax or pleural effusion. Pulmonary vascularity: Unremarkable. Heart/mediastinum: Cardiomediastinal silhouette is unremarkable. A loop recorder projects over the le ft thorax over the heart. Musculoskeletal: No acute osseous pathology. Fixation hardware of the lumbar spine and cervical spine present. Other findings: Stimulator device leads project over the spine. IMPRESSION: 1. No acute cardiopulmonary disease process. 2. COPD changes.
--- NOTE | 2023-02-12 13:53 | XR ---
EXAMINATION TYPE: XR shoulder limited LT DATE OF EXAM: 02/12/2023 12:49 PM CLINICAL INDICATION:Female, 87 years old with history of pain; [facility] COMPARISON: None TECHNIQUE: XR shoulder limited LT; shoulder was examined in AP, internally rotated and scapular Y pr ojections. FINDINGS: No evidence of acute osseous pathology, joint dislocation, or soft tissue swelling. The remaining por tions of the visualized chest are unremarkable. Mild degeneration changes with osteophyte formation. Loop recorder projects over the heart. IMPRESSION: No acute osseous pathology. Mild left shoulder is atherosclerosis.
--- NOTE | 2023-02-12 14:12 | P.PN ---
Subjective Progress Note Date: 02/12/23 History of present illness: Patient is a pleasant 87-year-old female with significant past medical history of atrial fibrillation on Eliquis, CAD status post PCI 5 we'll she was in [place] years ago, hypertension presented to the emergency department with complaints of chest pain. Patient is a poor historian and has what appears to be memory issues. She does report that she has having left shoulder pains that come and go and radiates to her back. She is unable to provide any further details regarding her pain. She has been feeling fatigued. She denies any shortness of breath, dizziness, syncope. EKG shows atrial fibrillation 83 beats per minutes. Chest x-ray with no acute findings. Labs reviewed: Troponin negative 3, potassium 4.4, creatinine 0.61, LDL 114, lipase 77. Per ED report patient was given aspirin and nitroglycerin by EMS however patient was unable to state if her symptoms improved. 02/12 Patient is seen today in follow-up. She denies having any chest pain, no shortness of breath. She is working with physical therapy this morning. Echocardiogram is pending. Heart rate is in the 70s to 90s, blood pressure 123/73. PHYSICAL EXAMINATION: This is a 87-year-old female in no apparent distress at the time of my examination. HEENT: Head is atraumatic, normocephalic. Pupils are equal, round. Sclerae anicteric. Conjunctivae are clear. Mucous membranes of the mouth are moist. Neck is supple. There is no jugular venous distention. No carotid bruit is heard. CHEST EXAMINATION: Lungs are clear to auscultation. No chest wall tenderness is noted on palpation or with deep breathing. HEART EXAMINATION: Heart regular rate and rhythm. S1, S2 heard. No murmurs, gallops or rub. ABDOMEN: Soft, nontender. Bowel sounds are heard. EXTREMITIES: 2+ peripheral pulses with no evidence of peripheral edema and no calf tenderness noted. She does have left shoulder tenderness on exam. NEUROLOGIC EXAMINATION: Patient is awake, alert, poor recall of events and history. IMPRESSION AND PLAN: Paroxysmal atrial fibrillation, currently in A. fib, rate controlled CAD status post multiple stents done in [place] Hypertension Chest pain, atypical Left shoulder pain PLAN: If echocardiogram is unremarkable, patient is cleared for discharge from cardiology Patient may follow the office and 1-2 weeks. Nurse practitioner note has been reviewed, I agree with the documented findings and plan of care. Patient was seen and examined. Objective - Vital Signs Vital signs: Vital Signs Temp 97.9 F 02/12/23 02:00 Pulse 94 02/12/23 02:00 Resp 16 02/12/23 02:00 BP 120/71 02/12/23 02:00 Pulse Ox 94 L 02/12/23 02:00 FiO2 Intake & Output 02/11/23 02/12/23 02/12/23 18:59 06:59 18:59 Other: Voiding Method Toilet Toilet # Voids 1 1 - Labs CBC & Chem 7: 02/10/23 14:20 02/10/23 14:20 Labs: Abnormal Lab Results - Last 24 Hours (Table) 02/11/23 Range/Units 05:38 Cholesterol 217.00 H (0.00-200.00) mg/dL HDL Cholesterol 76.30 H (40.00-60.00) mg/dL
[2023-02-12 18:04] LABS: Appearance,Urine Clear (Clear); Bilirubin,Urine Negative (Negative); Blood,Urine Negative (Negative); Color,Urine Yellow; Glucose,Urine (UA) Negative (Negative); Ketones,Urine Negative (Negative); Leukocyte Esterase,Urine Negative (Negative); Nitrite,Urine Negative (Negative); Protein,Urine Negative (Negative); Specific Gravity,Urine 1.012 (1.001-1.035); Urobilinogen,Urine <2.0 mg/dL (<2.0)
--- NOTE | 2023-02-12 19:21 | CA ---
Transthoracic Echo Report Name: Isabella Burt Age: 87 Gender: F : 1935 Exam Date: 02/12/2023 15:51 Exam Location: [facility] Ht (in): 63 Wt (lb): 180 Ordering Physician: Trinidad Trammell Attending/Referring Phys: Paper Wrapping Machine Operator Blanco Chawla Procedure CPT: Indications: Chest Pain Cardiac Hx: Technical Quality: Fair Contrast 1: Total Dose (mL): Contrast 2: Total Dose (mL): MEASUREMENTS (Male / Female) Normal Values 2D ECHO LV Diastolic Diameter PLAX 4.1 cm 4.2 - 5.9 / 3.9 - 5.3 cm IVS Diastolic Thickness 0.9 cm 0.6 - 1.0 / 0.6 - 0.9 cm LVPW Diastolic Thickness 0.8 cm 0.6 - 1.0 / 0.6 - 0.9 cm LV Relative Wall Thickness 0.4 RV Internal Dim ED PLAX 2.4 cm LVOT Diameter 2.0 cm Aortic Root Diameter 3.3 cm LA Systolic Diameter LX 2.9 cm 3.0 - 4.0 / 2.7 - 3.8 cm LV Diastolic Volume MOD BP 41.4 cm??? 67 - 155 / 56 - 104 cm??? LV Systolic Volume MOD BP 25.7 cm??? 22 - 58 / 19 - 49 cm??? LV Ejection Fraction MOD BP 37.9 % >= 55 % LV Cardiac Index MOD BP 768.6 cm???/min???m??? LV Diastolic Volume MOD 4C 35.3 cm??? LV Systolic Volume MOD 4C 18.3 cm??? LV Ejection Fraction MOD 4C 48.0 % LV Cardiac Index MOD 4C 831.9 cm???/min???m??? LV Diastolic Length 4C 5.3 cm LV Systolic Length 4C 4.8 cm LV Diastolic Volume MOD 2C 46.1 cm??? LV Systolic Volume MOD 2C 32.5 cm??? LV Ejection Fraction MOD 2C 29.5 % LV Cardiac Index MOD 2C 666.8 cm???/min???m??? LV Diastolic Length 2C 5.6 cm LV Systolic Length 2C 5.4 cm LA Volume 67.1 cm??? 18 - 58 / 22 - 52 cm??? LA Volume Index 34.7 cm???/m??? 16 - 28 cm???/m??? Ascending Aorta Diameter 3.2 cm DOPPLER AV Peak Velocity 182.6 cm/s AV Peak Gradient 13.3 mmHg LVOT Peak Velocity 58.5 cm/s LVOT Peak Gradient 1.4 mmHg LVOT Velocity Time Integral 12.4 cm LVOT Stroke Volume 40.5 cm??? LVOT Stroke Volume Index 21.9 ml/m??? LVOT Cardiac Index 1985.9 cm???/min???m??? AV Area Cont Eq pk 1.0 cm??? MV Peak Velocity 89.8 cm/s MV Peak Gradient 3.2 mmHg MV Mean Velocity 41.8 cm/s MV Mean Gradient 0.9 mmHg MV Velocity Time Integral 21.6 cm MR Peak Velocity 395.7 cm/s MR Peak Gradient 62.6 mmHg Mitral E Point Velocity 88.0 cm/s Mitral A Point Velocity 22.7 cm/s Mitral E to A Ratio 3.9 MV Deceleration Time 228.6 ms PV Peak Velocity 80.1 cm/s PV Peak Gradient 2.6 mmHg FINDINGS Left Ventricle Normal LV size and wall thickness. Left ventricular ejection fraction is estimated at 45-50%, mild global hypokinesis Right Ventricle Normal right ventricular size. Right Atrium RA Area= 16cm2 Left Atrium Moderately increased left atrial volume. LA volume index= 36ml/m2 Mitral Valve Structurally normal mitral valve. Mild MR. Aortic Valve Trileaflet aortic valve. Mild to moderate AV sclerosis/calcification. AV peak gradient= 13.3mmHg.No aortic valve stenosis or regurgitation. Tricuspid Valve Structurally normal tricuspid valve. Mild TR. Pulmonic Valve Pulmonic valve not well visualized. Mild PI. Pericardium Normal pericardium. Aorta Normal size aortic root. CONCLUSIONS 1. Mild left ventricular systolic dysfunction with mild global hypokinesis 2. Mild mitral and tricuspid regurgitation 3. No pericardial effusion Previewed by: Dr. Mikhail Henley MD (Electronically Signed) Final Date: 12 February 2023 19:20
[2023-02-12] MEDS: FUROSEMIDE 10 MG/ML 2 ML VIAL IV SCH ×2 (20:07→20:15)
[2023-02-13] MEDS: LEVOTHYROXINE 112 MCG TAB PO SCH (06:23)
[2023-02-13] MEDS: ISOSORBIDE MONONITRATE ER 30 MG TAB.ER.24H PO SCH (09:58)
[2023-02-13] MEDS: ASPIRIN 81 MG PO SCH (09:58)
[2023-02-13] MEDS: FUROSEMIDE 10 MG/ML 2 ML VIAL IV SCH (09:58)
[2023-02-13] MEDS: SERTRALINE 100 MG TAB PO SCH (09:58)
[2023-02-13] MEDS: POTASSIUM CHLORIDE ER 10 MEQ TAB.ER.PRT PO SCH (09:58)
[2023-02-13] MEDS: APIXABAN 2.5 MG TABLET PO SCH (09:59)
[2023-02-13] MEDS: METOPROLOL TARTRATE 25 MG TAB PO SCH (09:59)
[2023-02-13] MEDS: FAMOTIDINE 20 MG/2 ML VIAL IV SCH (09:59)
[2023-02-13] MEDS: MONTELUKAST 10 MG TAB PO SCH (09:59)
--- NOTE | 2023-02-13 10:22 | P.PN ---
Subjective Progress Note Date: 02/13/23 History of present illness: Patient is a pleasant 87-year-old female with significant past medical history of atrial fibrillation on Eliquis, CAD status post PCI 5 we'll she was in [place] years ago, hypertension presented to the emergency department with complaints of chest pain. Patient is a poor historian and has what appears to be memory issues. She does report that she has having left shoulder pains that come and go and radiates to her back. She is unable to provide any further details regarding her pain. She has been feeling fatigued. She denies any shortness of breath, dizziness, syncope. EKG shows atrial fibrillation 83 beats per minutes. Chest x-ray with no acute findings. Labs reviewed: Troponin negative 3, potassium 4.4, creatinine 0.61, LDL 114, lipase 77. Per ED report patient was given aspirin and nitroglycerin by EMS however patient was unable to state if her symptoms improved. 02/12 Patient is seen today in follow-up. She denies having any chest pain, no shortness of breath. She is working with physical therapy this morning. Echocardiogram is pending. Heart rate is in the 70s to 90s, blood pressure 123/73. 02/13 patient is seen in follow-up today. She remains in atrial fibrillation mostly in the 90s but occasionally has a brief period of 120s to 130s with one occurring on Sunday and one on Sunday. Pulse ox is 96% on room air, blood pressure 132/74. Patient states she has a little bit of pressure at rest not with activity. No shortness of breath. She did not sleep well last night. Echocardiogram revealsmild left ventricular systolic dysfunction with mild global hypokinesis. Mild mitral and tricuspid regurgitation. No pericardial effusion. PHYSICAL EXAMINATION: This is a 87-year-old female in no apparent distress at the time of my examination. HEENT: Head is atraumatic, normocephalic. Pupils are equal, round. Sclerae anicteric. Conjunctivae are clear. Mucous membranes of the mouth are moist. Neck is supple. There is no jugular venous distention. No carotid bruit is heard. CHEST EXAMINATION: Lungs are clear to auscultation. No chest wall tenderness is noted on palpation or with deep breathing. HEART EXAMINATION: Heart regular rate and rhythm. S1, S2 heard. No murmurs, gallops or rub. ABDOMEN: Soft, nontender. Bowel sounds are heard. EXTREMITIES: 2+ peripheral pulses with no evidence of peripheral edema and no calf tenderness noted. She does have left shoulder tenderness on exam. NEUROLOGIC EXAMINATION: Patient is awake, alert, poor recall of events and history. IMPRESSION AND PLAN: Paroxysmal atrial fibrillation, currently in A. fib, rate controlled CAD status post multiple stents done in [place] Hypertension Chest pain, atypical Left shoulder pain PLAN: Patient is cleared for discharge from cardiology Patient may follow the office in 1-[address] Edmondson. Cardiology will sign off this case and follow on an as-needed basis. Please reconsult for any new concerns. Nurse practitioner note has been reviewed, I agree with the documented findings and plan of care. Patient was seen and examined. Objective - Vital Signs Vital signs: Vital Signs Temp 97.5 F L 02/13/23 03:08 Pulse 88 02/13/23 03:08 Resp 16 02/13/23 03:08 BP 132/74 02/13/23 03:08 Pulse Ox 96 02/13/23 03:08 FiO2 Intake & Output 02/12/23 02/13/23 02/13/23 18:59 06:59 18:59 Intake Total 177 Balance 177 Intake: Oral 177 Other: Voiding Method Toilet Toilet # Voids 4 1 # Bowel Movements 3 - Labs CBC & Chem 7: 02/10/23 14:20 02/10/23 14:20
[2023-02-13 14:09] VITALS: BP 125/84; PULSE 72; RESP 12; TEMP 98.6
== END 2023-02-13 15:05 | disposition home or self-care (01) | DRG 309 ==
LOC: EC 13:44 → 6NMEDSUR 15:15 → OBSVTOIN 02-12 06:42
PROVIDERS: ADMIT Hospitalist; ATTEND Hospitalist
DX: I48.0 Paroxysmal atrial fibrillation (principal); I25.110 Atherosclerotic heart disease of native coronary artery with unstable angina pectoris; I10 Essential (primary) hypertension; I25.2 Old myocardial infarction; Z79.01 Long term (current) use of anticoagulants; Z79.890 Hormone replacement therapy; Z79.899 Other long term (current) drug therapy; Z95.5 Presence of coronary angioplasty implant and graft; Z88.2 Allergy status to sulfonamides; Z88.8 Allergy status to other drugs, medicaments and biological substances; Z91.041 Radiographic dye allergy status
CPT/HCPCS: 36415; 71045; 71046; 80053; 80061; 81003; 83690; 83735; 84484; 85025; 85610; 85730; 93005; 93306; 99285

== ENCOUNTER 2023-07-23 17:43 | Inpatient (IN) | payer MEDICARE ==
--- NOTE | 2023-07-23 18:09 | ED ---
General Adult HPI - General Stated complaint: Fracture Time Seen by Provider: 07/23/23 17:47 Source: EMS Mode of arrival: EMS Limitations: altered mental status - History of Present Illness Initial comments: Dictation was produced using Mang[employer] dictation software. please excuse any g rammatical, word or spelling errors. Chief Complaint: 88-year-old female presents to the emergency department for bilateral upper extremity fractures History of Present Illness: Patient is an 88-year-old female presents to the ER via EMS transfer from [facility] for bilateral humeral fractures. Patient interviewed at the bedside states that she syncopized and fell to the ground. She does not remember how she fell. She had trauma workup performed at [facility]. She had a negative CT scan. She was found to have bilateral humerus fractures. Patient complains of bilateral arm pain. The ROS documented in this emergency department record has been reviewed and confirmed by me. Those systems with pertinent positive or negative responses have been documented in the HPI. All other systems are other negative and/or noncontributory. - Related Data Home Medications Medication Instructions Recorded Confirmed Apixaban [Eliquis] 2.5 mg PO BID 09/29/22 07/23/23 Furosemide [Lasix] 20 mg PO DAILY 09/29/22 07/23/23 Levothyroxine Sodium 112 mcg PO DAILY 09/29/22 07/23/23 Liothyronine Sodium [Cytomel] 5 mcg PO DAILY 09/29/22 07/23/23 Metoprolol Tartrate 25 mg PO BID 09/29/22 07/23/23 Montelukast [Singulair] 10 mg PO DAILY 09/29/22 07/23/23 Potassium Chloride ER [K-Dur 10] 10 meq PO DAILY 09/29/22 07/23/23 Sertraline [Zoloft] 100 mg PO DAILY 09/29/22 07/23/23 Albuterol Inhaler [Ventolin Hfa 2 puff INHALATION RT-QID PRN 02/10/23 07/23/23 Inhaler] Isosorbide Mononitrate ER [Imdur] 30 mg PO BID 02/10/23 07/23/23 Hydrocortisone Oint 1 applic TOPICAL BID 07/23/23 07/23/23 [Hydrocortisone 2.5% Oint] Loratadine [Claritin] 10 mg PO DAILY 07/23/23 07/23/23 Allergies Allergy/AdvReac Type Severity Reaction Status Date / Time Iodinated Contrast Media Allergy Unknown Verified 07/23/23 19:17 sulfamethoxazole Allergy Unknown Verified 07/23/23 19:17 [From Bactrim] trimethoprim [From Bactrim] Allergy Unknown Verified 07/23/23 19:17 Review of Systems ROS Statement: Those systems with pertinent positive or pertinent negative responses have been documented in the HPI. ROS Other: All systems not noted in ROS Statement are negative. Past Medical History Past Medical History: Atrial Fibrillation, Coronary Artery Disease (CAD), Hypert ension, Myocardial Infarction (SC) Last Myocardial Infarction Date:: n/a History of Any Multi-Drug Resistant Organisms: None Reported Past Surgical History: Appendectomy, Cholecystectomy, Heart Catheterization With Stent Additional Past Surgical History / Comment(s): back surgery Date of Last Stent Placement:: n/a Past Psychological History: No Psychological Hx Reported Smoking Status: Never smoker Past Alcohol Use History: None Reported Past Drug Use History: None Reported General Exam - General Exam Comments Initial Comments: PHYSICAL EXAM: General Impression: Alert and oriented x3, not in acute distress HEENT: Normocephalic atraumatic, extra-ocular movements intact, pupils equal and reactive to light bilaterally, mucous membranes moist. Cardiovascular: Heart regular rate and rhythm Chest: Able to complete full sentences, no retractions, no tachypnea Abdomen: abdomen soft, non-tender, non-distended, no organomegaly Musculoskeletal: Pulses present and equal in all extremities, no peripheral edema, bilateral arm pain Motor: no focal deficits noted Neurological: CN II-XII grossly intact, no focal motor or sensory deficits noted Skin: Intact with no visualized rashes Psych: Normal affect and mood Limitations: altered mental status Course Vital Signs 07/23/23 07/23/23 17:52 19:29 Temperature 97.7 F Pulse Rate 88 76 Respiratory 20 16 Rate Blood Pressure 123/79 134/78 O2 Sat by Pulse 93 L 98 Oximetry EKG Findings - EKG Comments: EKG Findings:: My EKG interpretation: Ventricular rate 104, A-fib with RVR, QRS 102, QTc 427. No MA prolongation, no QTC prolongation, no ST or T-wave changes noted. EKG compared to February 11, 2023 showing no changes. Overall, this EKG is unremarkable Medical Decision Making - Medical Decision Making Was pt. sent in by a medical professional or institution (, [facility], MULTI SITE LEASING CONSULTANT, urgent care, hospital, or assisted...) When possible be specific @ -No Did you speak to anyone other than the patient for history (EMS, parent, family, police, friend...)? What history was obtained from this source @ -No Did you review nursing and triage notes (agree or disagree)? Why? @ -I reviewed and agree with nursing and triage notes Were old charts reviewed (outside hosp., previous admission, EMS record, old EKG, old radiological studies, urgent care reports/EKG's, assisted records)? Report findings @ -No old charts were reviewed Differential Diagnosis (chest pain, altered mental status, abdominal pain women, abdominal pain men, vaginal bleeding, musculoskeletal, weakness, fever, dyspnea, syncope, headache, dizziness, GI bleed, back pain, seizure, CVA, palpatations, mental health)? @ -Differential Syncope: Valvular disease, hypertrophic cardiomyopathy, pulmonary embolism, tamponade, tachycardia, bradycardia, SC, hypovolemia, hemorrhage, dissection, anemia, intracranial hemorrhage, seizure, hypoglycemia, carbon monoxide poisoning, this is not meant to be an all-inclusive list. EKG interpreted by me (3pts min.). @ -See above X-rays interpreted by me (1pt min.). @ -Bilateral humerus fractures seen on humerus x-rays CT interpreted by me (1pt min.). @ -None done U/S interpreted by me (1pt. min.). @ -None done What testing was considered but not performed or refused? (CT, X-rays, U/S, labs)? Why? @ -None What meds were considered but not given or refused? Why? @ -None Did you discuss the management of the patient with other professionals (professionals i.e. [facility], MULTI SITE LEASING CONSULTANT, lab, RT, psych nurse, social service manager, income tax preparer, teacher, chief sustainability officer, telephonic case manager)? Give summary @ -Case discussed with hospitalist for admission Was smoking cessation discussed for >3mins.? @ -No Was critical care preformed (if so, how long)? @ -No Were there social determinants of health that impacted care today? How? (Homelessness, low income, unemployed, alcoholism, drug addiction, transportation, low edu. Level, literacy, decrease access to med. care, [facility], rehab)? @ -No Was there de-escalation of care discussed even if they declined (Discuss DNR or withdrawal of care, Hospice)? DNR status @ -No What co-morbidities impacted this encounter? (DM, HTN, Smoking, COPD, CAD, Cancer, CVA, ARF, Chemo, Hep., AIDS, mental health diagnosis, sleep apnea, morbid obesity)? @ -None Was patient admitted / discharged? Hospital course, mention meds given and route, prescriptions, significant lab abnormalities, going to OR and other pert inent info. @ -88-year-old female presents to the emergency department for bilateral humerus fractures. Vital signs stable. Patient interviewed at the bedside and clinical presentation worrisome for syncope secondary to cardiac process. She does have history of A-fib. Patient right upper extremity placed in coapt splint. Bilateral upper extremities were placed in slings. Laboratory evaluati on obtained. Labs are within acceptable limits. Patient will be admitted for syncope workup, orthopedic and cardiology consultation. Patient had a CT scan of the brain which was negative according to documentation at [facility] ER. X-rays were ordered at our facility due to difficulties uploading images from [facility] to our EMR. Undiagnosed new problem with uncertain prognosis? @ -No Drug Therapy requiring intensive monitoring for toxicity (Heparin, Nitro, Insulin, Cardizem)? @ -No Were any procedures done? @ -No Diagnosis/symptom? Acute, or Chronic, or Acute on Chronic? Uncomplicated (without systemic symptoms) or Complicated (systemic symptoms)? @ -Syncope, humerus fractures Side effects of treatment? @ -No Exacerbation, Progression, or Severe Exacerbation? @ -No Poses a threat to life or bodily function? How? (Chest pain, USA, SC, pneumonia, PE, COPD, DKA, ARF, appy, cholecystitis, CVA, Diverticulitis, Homicidal, Suicidal, threat to staff... and all critical care pts) @ -yes - Lab Data Result diagrams: 07/23/23 18:18 07/23/23 18:18 Lab Results 07/23/23 07/23/23 07/23/23 Range/Units 18:18 18:18 18:18 WBC 13.4 H (3.8-10.6) k/uL RBC 4.19 (3.80-5.40) m/uL Hgb 12.7 (11.4-16.0) gm/dL Hct 40.2 (34.0-46.0) % MCV 96.0 (80.0-100.0) fL MCH 30.2 (25.0-35.0) pg MCHC 31.5 (31.0-37.0) g/dL RDW 13.9 (11.5-15.5) % Plt Count 262 (150-450) k/uL MPV 8.9 Neutrophils % 91 % Lymphocytes % 4 % Monocytes % 4 % Eosinophils % 0 % Basophils % 0 % Neutrophils # 12.2 H (1.3-7.7) k/uL Lymphocytes # 0.5 L (1.0-4.8) k/uL Monocytes # 0.6 (0-1.0) k/uL Eosinophils # 0.0 (0-0.7) k/uL Basophils # 0.0 (0-0.2) k/uL PT 10.9 (10.0-12.5) sec INR 1.0 (<1.2) APTT 25.9 (22.0-30.0) sec Sodium 137 (137-145) mmol/L Potassium 4.5 (3.5-5.1) mmol/L Chloride 104 (98-107) mmol/L Carbon Dioxide 24 (22-30) mmol/L Anion Gap 9 mmol/L BUN 14 (7-17) mg/dL Creatinine 0.57 (0.52-1.04) mg/dL Est GFR (CKD-EPI)AfAm >90 (>60 ml/min/1.73 sqM) Est GFR (CKD-EPI)NonAf 83 (>60 ml/min/1.73 sqM) Glucose 163 H (74-99) mg/dL Calcium 8.7 (8.4-10.2) mg/dL Troponin I (0.000-0.034) ng/mL NT-Pro-B Natriuret Pep 1980 pg/mL 07/23/23 Range/Units 18:18 WBC (3.8-10.6) k/uL RBC (3.80-5.40) m/uL Hgb (11.4-16.0) gm/dL Hct (34.0-46.0) % MCV (80.0-100.0) fL MCH (25.0-35.0) pg MCHC (31.0-37.0) g/dL RDW (11.5-15.5) % Plt Count (150-450) k/uL MPV Neutrophils % % Lymphocytes % % Monocytes % % Eosinophils % % Basophils % % Neutrophils # (1.3-7.7) k/uL Lymphocytes # (1.0-4.8) k/uL Monocytes # (0-1.0) k/uL Eosinophils # (0-0.7) k/uL Basophils # (0-0.2) k/uL PT (10.0-12.5) sec INR (<1.2) APTT (22.0-30.0) sec Sodium (137-145) mmol/L Potassium (3.5-5.1) mmol/L Chloride (98-107) mmol/L Carbon Dioxide (22-30) mmol/L Anion Gap mmol/L BUN (7-17) mg/dL Creatinine (0.52-1.04) mg/dL Est GFR (CKD-EPI)AfAm (>60 ml/min/1.73 sqM) Est GFR (CKD-EPI)NonAf (>60 ml/min/1.73 sqM) Glucose (74-99) mg/dL Calcium (8.4-10.2) mg/dL Troponin I <0.012 (0.000-0.034) ng/mL NT-Pro-B Natriuret Pep pg/mL Disposition Clinical Impression: Syncope, Humerus fracture Disposition: ADMITTED IP TO THIS HOSP Condition: Fair Referrals: None,Stated [REFERRING] - 1-2 days Decision Time: 19:39
[2023-07-23 18:40] LABS: Partial Thromboplastin Time 25.9 sec (22.0-30.0); Prothrombin Time 10.9 sec (10.0-12.5)
[2023-07-23 18:43] LABS: African American GFR (CKD) >90 (>60 ml/min/1.73 sqM); Anion Gap 9 mmol/L; Blood Urea Nitrogen 14 mg/dL (7-17); Calcium 8.7 mg/dL (8.4-10.2); Carbon Dioxide 24 mmol/L (22-30); Chloride 104 mmol/L (98-107); Glucose 163 mg/dL (74-99); Non-African American GFR(CKD) 83 (>60 ml/min/1.73 sqM); Potassium 4.5 mmol/L (3.5-5.1); Sodium 137 mmol/L (137-145)
[2023-07-23 18:45] LABS: Basophils % (A) 0 %; Eosinophils % (A) 0 %; HCT 40.2 % (34.0-46.0); HGB 12.7 gm/dL (11.4-16.0); Lymphocytes # (A) 0.5 k/uL (1.0-4.8); Lymphocytes % (A) 4 %; MCH 30.2 pg (25.0-35.0); MCHC 31.5 g/dL (31.0-37.0); Mean Platelet Volume 8.9; Monocytes # (A) 0.6 k/uL (0-1.0); Monocytes % (A) 4 %; Neutrophils # (A) 12.2 k/uL (1.3-7.7); Neutrophils % (A) 91 %; Platelet Count 262 k/uL (150-450); RBC 4.19 m/uL (3.80-5.40); RDW 13.9 % (11.5-15.5); WBC 13.4 k/uL (3.8-10.6)
[2023-07-23 18:52] LABS: NT-Pro-B-Type Natriuretic Pept 1980 pg/mL
--- NOTE | 2023-07-23 19:02 | XR ---
EXAMINATION TYPE: XR chest 1V portable DATE OF EXAM: 07/23/2023 COMPARISON: 02/02/2023 HISTORY: Bilateral fractures TECHNIQUE: Single frontal view of the chest is obtained. FINDINGS: There is a TENS unit in the mid thoracic spine. The heart size is normal. The lungs are clear. There is no large pleural effusion or pneumothorax. There is displacement right humeral head fracture. IMPRESSION: 1. No acute cardiopulmonary disease. 2. Right humeral head fracture.
--- NOTE | 2023-07-23 19:06 | XR ---
Bilateral humerus HISTORY: Pain finding trauma COMPARISON: None. TECHNIQUE: 4 views were obtained including 2 of each humerus. Right humerus: There is a 4 part fracture involving the right humeral head with moderate displacement. Left humerus: There is a two-part fracture surgical neck with mild displacement. IMPRESSION: Bilateral humeral head fractures as described above.
[2023-07-23] MEDS: MORPHINE SULFATE 4 MG/ML SYRINGE IVP STA (19:27)
[2023-07-23] MEDS ORDERED: NALOXONE 0.4 MG/ML 1 ML VIAL IV PRN (19:30)
[2023-07-23] MEDS: SODIUM CHLORIDE 0.9% 1,000 ML IV SCH (19:36)
[2023-07-23] MEDS: APIXABAN 2.5 MG TABLET PO SCH (20:37)
[2023-07-24] MEDS: MORPHINE SULFATE 4 MG/ML SYRINGE IV PRN (00:30)
[2023-07-24] MEDS: METOPROLOL TARTRATE 25 MG TAB PO STA (01:27)
[2023-07-24] MEDS ORDERED: ALBUTEROL NEBULIZED 2.5 MG/3 ML INHALATION PRN (05:58)
--- NOTE | 2023-07-24 07:32 | P.HPIM ---
History of Present Illness H&P Date: 07/24/23 HISTORY OF PRESENT ILLNESS: 88-year-old one of our office patient with past history of coronary artery disease, post GA, hypertension, hyperlipidemia, history of atrial fibrillation with rapid ventricular response, post angioplasty and stent placement, history of osteoporosis, hypothyroidism, hyperlipidemia, generalized osteoarthritis. She was transferred from the emergency department at [facility] for bilateral humeral fracture she had apparently syncopal episode: Ground landed on both arms. Fracture both humerus and developed to have significant pain in both sides, also had trauma to the left forehead which apparently brain scan was done at [facility] and did not show any bleed.. Was placed in a sling and has syncopal episode not will explain without any seizure. She was requested to be transferred by [facility] hospitalist group to [facility] will be seen cardiology and orthopedic. Patient continued to have severe pain and discomfort she does not remember what happened exactly except could not protect herself with her syncopal episode as drop in causing her to have significant episode with no other trauma no head trauma beside her upper extremity. REVIEW OF SYSTEMS: CONSTITUTIONAL: Well-developed no acute respiratory distress. EYES: No icterus sclerae, no conjunctivitis. EARS, NOSE, MOUTH, THROAT, and FACE: No sore throat, lymphadenopathy, carotid bruits or deformity. RESPIRATORY: No SOB cough or wheezes. CARDIOVASCULAR: No chest pain or angina positive palpitation. GASTROINTESTINAL: No Abd pain, Nausea or vomiting, no Diarrhea or constipation, No GI Bleed, no distention or masses. GENITOURINARY: Negative for Hematuria or UTI, no kidney stones. INTEGUMENT/BREAST: Negative for any muscular injury with mild osteoarthritis.. HEMATOLOGIC/LYMPHATIC: Negative for bleed or purpura. MUSCULOSKELTAL: Bilateral upper extremity pain and discomfort with slight swelling both arm in sling. NEURLOGICAL: No LOC, Sz or syncope, blurred vision dizziness or abnormality.. BEHAVIORAL/PSYCH: Negative. ENDOCRINE: Negative. PHYSICAL EXAMINATION: General Appearance: Alert, cooperative, no distress, appears stated age. No sign of head trauma. Neck HEENT: Supple, no lymphadenopathy, no thyroid enlargement, no carotid bruits. Lungs: Clear to auscultation without crackles or wheezes no rhonchi, no deformity. Chest Wall: Decreased expansion with deep inspiration no tenderness and no deformity was found on exam, no costochondral pain or discomfort. Heart: Irregular rate and rhythm, S1, S2 positive systolic murmur. Back: Symmetric, no curvature, ROM normal, no CVA tenderness. Slight scoliosis. Abdomen: Soft, non-tender, bowel sounds active all four quadrants, no masses, no organomegaly. Extremities: Lower extremity with generalized arthritis, very trace edema in the lower part of her leg. Upper extremity both are in sling with significant pain discomfort and swelling in the upper part of her humerus area. Pulses: 2+ and symmetric. Skin: Skin color, texture, tugor normal, no rashes or lesions. Neurologic: Alert oriented x3 cranial nerves II through XII intact, no motor deficit, no abnormal balance or gait. ASSESSMENT AND PLAN: _Syncopal episode: Not clear etiology, patient will be hospitalized seeing cardiology, further testing including echocardiogram, heart monitor, carotid ultrasound, also might do an EEG and consult neurology. _Bilateral humerus fracture: Patient be seen orthopedic looking into surgical repair. _Close head trauma with left forehead bruise: No sign of bleed and did not have any symptoms afterward no head concussion. _A-fib with RVR: Has been on metoprolol along with Eliquis resume both medication, patient seen cardiology on more regular basis she was hospitalized last time in February 05 for A-fib with RVR with chest pain. Has been seeing cardiology regularly. _Atherosclerotic heart disease post GA with stent placement: Has been on secondary prevention remain on statin, aspirin, anticoagulation along with beta- blair. _Hypothyroidism: Continue both levothyroxine along with Cytomel. _Allergy: Has been on loratadine and Singulair on regular basis and apparently it is working good for her. _Ischemic cardiomyopathy with ejection fraction of 45%: Will hold off on diuretics for now till after the clearance with her workup for syncope in the meanwhile continue isosorbide mononitrate, Eliquis, metoprolol she is not on any ARB. _Mild mitral regurgitation: Still on medical management. _Hyperglycemia: No official diagnosis of diabetes, Accu-Chek with sliding scale coverage will be done for now. _GI prophylaxis: Patient will be on pantoprazole 40 mg daily. _Anticoagulation: Continue on Eliquis. CODE STATUS: Full code. Admit patient to the inpatient service for more than 2 night stay. Past Medical History Past Medical History: Atrial Fibrillation, Coronary Artery Disease (CAD), Hypertension, Myocardial Infarction ([place]) Additional Past Medical History / Comment(s): Glaucoma and macular degeneration Last Myocardial Infarction Date:: n/a History of Any Multi-Drug Resistant Organisms: None Reported Past Surgical History: Appendectomy, Cholecystectomy, Heart Catheterization With Stent Additional Past Surgical History / Comment(s): back surgery Date of Last Stent Placement:: n/a Past Psychological History: No Psychological Hx Reported Smoking Status: Never smoker Past Alcohol Use History: None Reported Past Drug Use History: None Reported Medications and Allergies Home Medications Medication Instructions Recorded Confirmed Type Apixaban [Eliquis] 2.5 mg PO BID 09/29/22 07/23/23 History Furosemide [Lasix] 20 mg PO DAILY 09/29/22 07/23/23 History Levothyroxine Sodium 112 mcg PO DAILY 09/29/22 07/23/23 History Liothyronine Sodium [Cytomel] 5 mcg PO DAILY 09/29/22 07/23/23 History Metoprolol Tartrate 25 mg PO BID 09/29/22 07/23/23 History Montelukast [Singulair] 10 mg PO DAILY 09/29/22 07/23/23 History Potassium Chloride ER [K-Dur 10] 10 meq PO DAILY 09/29/22 07/23/23 History Sertraline [Zoloft] 100 mg PO DAILY 09/29/22 07/23/23 History Albuterol Inhaler [Ventolin Hfa 2 puff INHALATION RT-QID PRN 02/10/23 07/23/23 History Inhaler] Isosorbide Mononitrate ER [Imdur] 30 mg PO BID 02/10/23 07/23/23 History Hydrocortisone Oint 1 applic TOPICAL BID 07/23/23 07/23/23 History [Hydrocortisone 2.5% Oint] Loratadine [Claritin] 10 mg PO DAILY 07/23/23 07/23/23 History Allergies Allergy/AdvReac Type Severity Reaction Status Date / Time Iodinated Contrast Media Allergy Unknown Verified 07/23/23 19:17 sulfamethoxazole Allergy Unknown Verified 07/23/23 19:17 [From Bactrim] trimethoprim [From Bactrim] Allergy Unknown Verified 07/23/23 19:17 Physical Exam Vitals: Vital Signs Temp Pulse Resp BP Pulse Ox 07/24/23 05:52 122 H 18 113/60 96 07/24/23 01:26 122 H 18 117/59 97 07/24/23 00:26 114 H 18 119/81 96 07/23/23 22:28 98.1 F 104 H 18 140/88 97 07/23/23 20:00 71 16 129/81 95 07/23/23 19:29 76 16 134/78 98 07/23/23 17:52 97.7 F 88 20 123/79 93 L Intake and Output 07/23/23 07/23/23 07/24/23 14:59 22:59 06:59 Other: Weight 72.575 kg Results CBC & Chem 7: 07/23/23 18:18 07/23/23 18:18 Labs: Abnormal Lab Results - Last 24 Hours (Table) 07/23/23 07/23/23 Range/Units 18:18 18:18 WBC 13.4 H (3.8-10.6) k/uL Neutrophils # 12.2 H (1.3-7.7) k/uL Lymphocytes # 0.5 L (1.0-4.8) k/uL Glucose 163 H (74-99) mg/dL
[2023-07-24 07:37] LABS: Glucose,Whole Blood 140 mg/dL (70-110)
[2023-07-24] MEDS: INSULIN ASPART (NovoLOG) 100 UNIT/ML VIAL SQ SCH (07:39)
[2023-07-24] MEDS: LORATADINE 10 MG TAB PO SCH (08:14)
[2023-07-24] MEDS: LEVOTHYROXINE 112 MCG TAB PO SCH (08:14)
[2023-07-24] MEDS: ISOSORBIDE MONONITRATE ER 30 MG TAB.ER.24H PO SCH ×2 (08:14→09:20)
[2023-07-24] MEDS: MONTELUKAST 10 MG TAB PO SCH (08:15)
[2023-07-24] MEDS: HYDROCORTISONE 1% OINT 28.35 GM TUBE TOPICAL SCH (08:15)
[2023-07-24] MEDS: METOPROLOL TARTRATE 25 MG TAB PO SCH (08:15)
[2023-07-24] MEDS: LIOTHYRONINE SODIUM 5 MCG TAB PO SCH (08:15)
[2023-07-24] MEDS: SERTRALINE 100 MG TAB PO SCH (08:15)
[2023-07-24 08:16] LABS: Amorphous Sediment,Urine Occasional /hpf; Appearance,Urine Cloudy (Clear); Bilirubin,Urine Negative (Negative); Blood,Urine Negative (Negative); Color,Urine Light Yellow; Glucose,Urine (UA) Negative (Negative); Ketones,Urine Negative (Negative); Leukocyte Esterase,Urine Negative (Negative); Mucus,Urine Rare /hpf; Nitrite,Urine Negative (Negative); PH, Urine 7.5 (5.0-8.0); Protein,Urine Trace (Negative); RBC,Urine 6 /hpf (0-5); Specific Gravity,Urine 1.014 (1.001-1.035); Urobilinogen,Urine <2.0 mg/dL (<2.0); WBC,Urine 1 /hpf (0-5)
--- NOTE | 2023-07-24 08:52 | US ---
EXAMINATION TYPE: US carotid duplex BILAT DATE OF EXAM: 07/24/2023 COMPARISON: NONE CLINICAL INDICATION: Female, 88 years old with history of Syncope; Patient fell and blacked out. No hx TIA per patient. TECHNIQUE: Carotid duplex ultrasound examination. Indirect Doppler criteria was utilized. FINDINGS: EXAM MEASUREMENTS: RIGHT: Peak Systolic Velocity (PSV) cm/sec ----- Right CCA: 41.9 ----- Right ICA: 82.0 ----- Right ECA: 49.4 ICA/CCA ratio: 2.0 RIGHT: End Diastole cm/sec ----- Right CCA: 12.0 ----- Right ICA: 23.7 ----- Right ECA: 0.0 LEFT: Peak Systolic Velocity (PSV) cm/sec ----- Left CCA: 37.7 ----- Left ICA: 93.1 ----- Left ECA: 50.5 ICA/CCA ratio: 2.5 LEFT: End Diastole cm/sec ----- Left CCA: 9.2 ----- Left ICA: 27.0 ----- Left ECA: 0.0 VERTEBRALS (direction of flow): Right Vertebral: Antegrade Left Vertebral: Antegrade Rhythm: Arrhythmia PIT SHOVELER NOTES: Plaque bilateral bulbs. No elevated velocities. IMPRESSION: No evidence for hemodynamically significant stenosis. Criteria for Assigning % of Stenosis / Diameter reduction (Estimation based on the indirect measurements of the internal carotid artery velocities (ICA PSV). 1. Normal (no stenosis)=ICA PSV < 125 cm/s: ratio < 2.0: ICA EDV<40 cm/s. 2. Less than 50% stenosis=ICA PSV < 125 cm/s: ratio < 2.0: ICA EDV<40 cm/s. 3. 50 to 69% stenosis=ICA PSV of 125 to 230 cm/s: ration 2.0 ? 4.0: ICA EDV 40-100 cm/s. 4. Greater than 70% stenosis to near occlusion= ICA PSV > 230 cm/s: ratio > 4.0: ICA EDV > 100 cm/s. 5. Near occlusion= ICA PSV velocities may be low or undetectable: variable ratio and ICA EDV. 6. Total occlusion=unable to detect flow.
--- NOTE | 2023-07-24 08:58 | P.CNOR ---
History of Present Illness - [facility] Consult date: 07/24/23 History of present illness: The patient is a very pleasant 88-year-old female who was transferred from [facility] with bilateral proximal humerus fractures following a syncopal event. The history is obtained both from the patient and her chart. According to the patient she fell and injured both of her shoulders. She says that she hurts all over but most of her pain seems to be in both of her shoulders. She denies any pain in her hips. He is also complaining of pain in her right foot. The patient initially presented to [facility] and was then transferred to our facility. Past Medical History Past Medical History: Atrial Fibrillation, Coronary Artery Disease (CAD), Hypertension, Myocardial Infarction ([place]) Additional Past Medical History / Comment(s): Glaucoma and macular degeneration Last Myocardial Infarction Date:: n/a History of Any Multi-Drug Resistant Organisms: None Reported Past Surgical History: Appendectomy, Cholecystectomy, Heart Catheterization With Stent Additional Past Surgical History / Comment(s): back surgery Date of Last Stent Placement:: n/a Past Psychological History: No Psychological Hx Reported Smoking Status: Never smoker Past Alcohol Use History: None Reported Past Drug Use History: None Reported Medications and Allergies Home Medications Medication Instructions Recorded Confirmed Type Apixaban [Eliquis] 2.5 mg PO BID 09/29/22 07/23/23 History Furosemide [Lasix] 20 mg PO DAILY 09/29/22 07/23/23 History Levothyroxine Sodium 112 mcg PO DAILY 09/29/22 07/23/23 History Liothyronine Sodium [Cytomel] 5 mcg PO DAILY 09/29/22 07/23/23 History Metoprolol Tartrate 25 mg PO BID 09/29/22 07/23/23 History Montelukast [Singulair] 10 mg PO DAILY 09/29/22 07/23/23 History Potassium Chloride ER [K-Dur 10] 10 meq PO DAILY 09/29/22 07/23/23 History Sertraline [Zoloft] 100 mg PO DAILY 09/29/22 07/23/23 History Albuterol Inhaler [Ventolin Hfa 2 puff INHALATION RT-QID PRN 02/10/23 07/23/23 History Inhaler] Isosorbide Mononitrate ER [Imdur] 30 mg PO BID 02/10/23 07/23/23 History Hydrocortisone Oint 1 applic TOPICAL BID 07/23/23 07/23/23 History [Hydrocortisone 2.5% Oint] Loratadine [Claritin] 10 mg PO DAILY 07/23/23 07/23/23 History Allergies Allergy/AdvReac Type Severity Reaction Status Date / Time Iodinated Contrast Media Allergy Unknown Verified 07/23/23 19:17 sulfamethoxazole Allergy Unknown Verified 07/23/23 19:17 [From Bactrim] trimethoprim [From Bactrim] Allergy Unknown Verified 07/23/23 19:17 Physical Examination the patient is resting on an ER gurney. She is alert and able to answer questions. There is a superficial abrasion over her forehead but her head is otherwise normocephalic and atraumatic. Her cervical spine is nontender. She demonstrates nonlabored breathing with symmetric chest expansion. Her abdomen is soft and nontender. Both of her upper extremities are in slings. A coaptati on splint was on her right arm and was removed. There is mild swelling in both arms but no obvious deformities or open wounds. Both of her arms and forearms are soft. She has tenderness over both shoulders and pain with any attempted range of motion of each shoulder. Her elbows and wrists are nontender. Motor and sensory function are intact. Both lower extremities are without deformity. She has no pain with logroll of both legs. There is no pain with passive range of motion of both hips. Her thighs and calves are soft and minimally tender. There is ecchymosis over the distal aspect of the right great toe. Results bilateral humerus x-rays show a displaced right 3 part proximal humerus fracture with fractures of the surgical neck and greater tuberosity and a minimally displaced 2 part left proximal humerus fracture. There is diffuse osteopenia. - Labs Labs: Abnormal Lab Results - Last 24 Hours (Table) 07/23/23 07/23/23 07/24/23 Range/Units 18:18 18:18 07:34 WBC 13.4 H (3.8-10.6) k/uL Neutrophils # 12.2 H (1.3-7.7) k/uL Lymphocytes # 0.5 L (1.0-4.8) k/uL Glucose 163 H (74-99) mg/dL POC Glucose (mg/dL) 140 H (70-110) mg/dL Urine Appearance (Clear) Urine Protein (Negative) Urine RBC (0-5) /hpf Amorphous Sediment (None) /hpf Urine Mucus (None) /hpf 07/24/23 Range/Units 07:38 WBC (3.8-10.6) k/uL Neutrophils # (1.3-7.7) k/uL Lymphocytes # (1.0-4.8) k/uL Glucose (74-99) mg/dL POC Glucose (mg/dL) (70-110) mg/dL Urine Appearance Cloudy H (Clear) Urine Protein Trace H (Negative) Urine RBC 6 H (0-5) /hpf Amorphous Sediment Occasional H (None) /hpf Urine Mucus Rare H (None) /hpf H & H 07/23/23 Range/Units 18:18 Hgb 12.7 (11.4-16.0) gm/dL Hct 40.2 (34.0-46.0) % Coagulation 07/23/23 Range/Units 18:18 INR 1.0 (<1.2) Result Diagrams: 07/23/23 18:18 07/23/23 18:18 Assessment and Plan Assessment: Displaced right 3 part proximal humerus fracture Minimally displaced left 2 part proximal humerus fracture Syncopal episode Osteoporosis Multiple medical problems Plan: I would recommend nonsurgical treatment of both proximal humerus fractures given the patient's age, fracture characteristics, poor bone quality, and multiple medical comorbidities. She should be strictly nonweightbearing on both upper extremities in slings. The coaptation splint on her right arm is unnecessary and was removed. The patient will need follow-up in the office in 1-2 weeks for repeat x-rays of her shoulders to monitor for displacement. If there is no displacement and her fractures remain stable we'll commence pendulum exercises and gradual range of motion starting in 2 weeks. The patient is okay to discharge from an orthopedic standpoint whenever she is medically stable and discharge arrangements are made. Time with Patient: Greater than 30
--- NOTE | 2023-07-24 10:39 | CA ---
Transthoracic Echo Report Name: Isabella Burt Age: 88 Gender: F : 1935 Exam Date: 07/24/2023 08:43 Exam Location: [place] Echo Ht (in): 64 Wt (lb): 160 Ordering Physician: Ricky Avila MD Attending/Referring Phys: Financial Associate Serena El RDCS Procedure CPT: Indications: lvfunction Cardiac Hx: Technical Quality: Fair Contrast 1: Total Dose (mL): Contrast 2: Total Dose (mL): MEASUREMENTS (Male / Female) Normal Values 2D ECHO LV Diastolic Diameter PLAX 3.6 cm 4.2 - 5.9 / 3.9 - 5.3 cm LV Systolic Diameter PLAX 2.7 cm IVS Diastolic Thickness 1.2 cm 0.6 - 1.0 / 0.6 - 0.9 cm LVPW Diastolic Thickness 1.1 cm 0.6 - 1.0 / 0.6 - 0.9 cm LV Relative Wall Thickness 0.6 FINDINGS Left Ventricle Limited study. Mildly increased left ventricular wall thickness. Reduced global left ventricular systolic function. Left ventricular ejection fraction is estimated at 45%. Right Ventricle Right Atrium Left Atrium Mitral Valve Aortic Valve Tricuspid Valve Pulmonic Valve Pericardium No pericardial effusion. Aorta CONCLUSIONS Limited study mild global decrease in contractility estimated ejection fraction of about 45% no pericardial effusion. Aortic valve sclerosis with mild restriction stenosis not quantified. Mitral annular calcification Previewed by: Dr. Cristo Herrera MD (Electronically Signed) Final Date: 24 July 2023 10:39
--- NOTE | 2023-07-24 12:17 | CT ---
EXAMINATION TYPE: CT brain wo con CT DLP: 1095.4 mGycm, Automated exposure control for dose reduction was used. DATE OF EXAM: 07/24/2023 11:55 AM COMPARISON: None. CLINICAL INDICATION:Female, 88 years old with history of syncope, syncope TECHNIQUE: Brain: Axial CT images of the brain were obtained with coronal and sagittal reformats created and rev iewed. Contrast used: None. Oral contrast used: None. FINDINGS: Brain: Extra-axial spaces: No abnormal extra-axial fluid collections. Ventricular system: Dilatation in proportion to cerebral atrophy. Cerebral parenchyma: Cerebral atrophy. No acute intraparenchymal hemorrhage or mass effect. The knox -white junction is well differentiated. Scattered hypoattenuating areas are seen within the white mat ter. Cerebellum: Unremarkable. Mass effect: No evidence of midline shift. Intracranial vasculature: Atherosclerotic calcifications of the intracranial vessels. Soft tissues: Normal. Calvarium/osseous structures: No depressed skull fracture. Paranasal sinuses and mastoid air cells: Mild scattered paranasal sinus disease. Visualized orbits: Bilaterally aphakia IMPRESSION: 1. No acute intracranial process. 2. Nonspecific white matter changes, likely secondary to chronic small vessel ischemic disease.
[2023-07-24 13:04] LABS: Glucose,Whole Blood 144 mg/dL (70-110)
--- NOTE | 2023-07-24 13:42 | P.CRDCN ---
History of Present Illness Consult date: 07/24/23 Consult reason: sycope History of present illness: History of present illness: This is an 88-year-old female patient of Dr. Patel with past medical history of coronary artery disease with prior stenting of the LAD, nonischemic cardiomyopathy and permanent atrial fibrillation as well as valvular heart disease, aortic stenosis, mitral regurgitation, hypertension, dyslipidemia. We have been asked to evaluate the patient for syncopal episode. Patient initially presented to [facility] and found to have bilateral humeral fractures. Patient was then transferred to [facility]. We have been asked to evaluate the patient for syncope. EKG atrial fibrillation with ventricular rate of 104 bpm Chest x-ray: No acute process. Right humeral head fracture. Bilateral humerus: Bilateral humeral head fractures. Carotid Doppler. No evidence of hemodynamically significant stenosis. CT of the brain reveals no acute intracranial process. Echocardiogram reveals EF of 45%. Aortic valve sclerosis with mild restriction stenosis not quantified. Mitral annular calcification. WBC 13.4, hemoglobin 12.7, platelet count 262. INR 1. Electrolytes and renal function normal. Troponin negative x . proBNP 1979. Urinalysis RBC 6. Trace protein. Home cardiac medications: Eliquis 2.5 mg twice daily, Lasix 20 mg daily, Imdur 30 mg twice daily, metoprolol tartrate 25 mg twice daily, potassium chloride 10 mill equivalents daily. Review Of Systems: At the time of my exam: CONSTITUTIONAL: Denies fever or chills. HEENT: Denies blurred vision, vision changes, or eye pain. Denies hemoptysis CARDIOVASCULAR: Denies chest pain. Denies orthopnea. Denies PND. Denies palpitations RESPIRATORY: Denies shortness of breath. GASTROINTESTINAL: Denies abdominal pain. Denies nausea or vomiting. HEMATOLOGIC: Denies bleeding disorders. GENITOURINARY: Denies any blood in urine. SKIN: Denies pruitis. Denies rash. Physical examination: Gen: This is a an 88-year-old female in no acute distress. VS: reviewed blood pressure 114/73, heart rate 102, pulse ox 96% on 2 L nasal cannula. HEENT: Head is atraumatic, normocephalic. Pupils equal, round. Sclerae is anicteric. NECK: Supple. No JVD. LUNGS: Clear to auscultation. No wheezes or rhonchi. No intercostal retractions. HEART: Irregular rate and rhythm. No murmur. ABDOMEN: Soft No tenderness. EXTREMITIES: No pedal edema. No calf tenderness. NEUROLOGICAL: Patient is awake, alert and oriented x3. Assessment: Fall, syncopal episode rule out arrhythmia, hypotension Bilateral humeral fractures Mild tachycardia most likely secondary to pain Ischemic cardiomyopathy Permanent atrial fibrillation Hypertension Dyslipidemia Coronary artery disease Plan: Resume patient's home cardiac medications Decrease frequency of Imdur 30 mg to daily May consider increasing beta-blair after pain is controlled Continue telemetry monitoring Obtain orthostatic vital signs Further recommendations to follow based upon clinical course Thank you kindly for this consultation. Nurse practitioner note has been reviewed, I agree with documented findings and plan of care. Patient was seen and examined. Past Medical History Past Medical History: Atrial Fibrillation, Coronary Artery Disease (CAD), Hypertension, Myocardial Infarction ([place]) Additional Past Medical History / Comment(s): Glaucoma and macular degeneration Last Myocardial Infarction Date:: n/a History of Any Multi-Drug Resistant Organisms: None Reported Past Surgical History: Appendectomy, Cholecystectomy, Heart Catheterization With Stent Additional Past Surgical History / Comment(s): back surgery Date of Last Stent Placement:: n/a Past Psychological History: No Psychological Hx Reported Smoking Status: Never smoker Past Alcohol Use History: None Reported Past Drug Use History: None Reported Medications and Allergies Home Medications Medication Instructions Recorded Confirmed Type Apixaban [Eliquis] 2.5 mg PO BID 09/29/22 07/23/23 History Furosemide [Lasix] 20 mg PO DAILY 09/29/22 07/23/23 History Levothyroxine Sodium 112 mcg PO DAILY 09/29/22 07/23/23 History Liothyronine Sodium [Cytomel] 5 mcg PO DAILY 09/29/22 07/23/23 History Metoprolol Tartrate 25 mg PO BID 09/29/22 07/23/23 History Montelukast [Singulair] 10 mg PO DAILY 09/29/22 07/23/23 History Potassium Chloride ER [K-Dur 10] 10 meq PO DAILY 09/29/22 07/23/23 History Sertraline [Zoloft] 100 mg PO DAILY 09/29/22 07/23/23 History Albuterol Inhaler [Ventolin Hfa 2 puff INHALATION RT-QID PRN 02/10/23 07/23/23 History Inhaler] Isosorbide Mononitrate ER [Imdur] 30 mg PO BID 02/10/23 07/23/23 History Hydrocortisone Oint 1 applic TOPICAL BID 07/23/23 07/23/23 History [Hydrocortisone 2.5% Oint] Loratadine [Claritin] 10 mg PO DAILY 07/23/23 07/23/23 History Allergies Allergy/AdvReac Type Severity Reaction Status Date / Time Iodinated Contrast Media Allergy Unknown Verified 07/23/23 19:17 sulfamethoxazole Allergy Unknown Verified 07/23/23 19:17 [From Bactrim] trimethoprim [From Bactrim] Allergy Unknown Verified 07/23/23 19:17 Physical Exam Vitals: Vital Signs Temp Pulse Resp BP Pulse Ox 07/24/23 08:00 97.9 F 88 18 127/69 95 07/24/23 05:52 122 H 18 113/60 96 07/24/23 01:26 122 H 18 117/59 97 07/24/23 00:26 114 H 18 119/81 96 07/23/23 22:28 98.1 F 104 H 18 140/88 97 07/23/23 20:00 71 16 129/81 95 07/23/23 19:29 76 16 134/78 98 07/23/23 17:52 97.7 F 88 20 123/79 93 L Intake and Output 07/23/23 07/24/23 07/24/23 22:59 06:59 14:59 Output Total 400 Balance -400 Output: Urine 400 Other: Weight 72.575 kg Results 07/23/23 18:18 07/23/23 18:18 Cardiac Enzymes 07/23/23 Range/Units 18:18 Troponin I <0.012 (0.000-0.034) ng/mL Coagulation 07/23/23 Range/Units 18:18 PT 10.9 (10.0-12.5) sec APTT 25.9 (22.0-30.0) sec CBC 07/23/23 Range/Units 18:18 WBC 13.4 H (3.8-10.6) k/uL RBC 4.19 (3.80-5.40) m/uL Hgb 12.7 (11.4-16.0) gm/dL Hct 40.2 (34.0-46.0) % Plt Count 262 (150-450) k/uL Comprehensive Metabolic Panel 07/23/23 Range/Units 18:18 Sodium 137 (137-145) mmol/L Potassium 4.5 (3.5-5.1) mmol/L Chloride 104 (98-107) mmol/L Carbon Dioxide 24 (22-30) mmol/L BUN 14 (7-17) mg/dL Creatinine 0.57 (0.52-1.04) mg/dL Glucose 163 H (74-99) mg/dL Calcium 8.7 (8.4-10.2) mg/dL Current Medications Generic Name Dose Route Start Last Admin Trade Name Freq PRN Reason Stop Dose Admin Albuterol Sulfate 2.5 mg 07/24/23 05:58 Albuterol Nebulized 2.5 Mg/3 Ml INHALATION RT-QID PRN Shortness Of Breath Apixaban 2.5 mg 07/23/23 21:00 07/24/23 08:14 Apixaban 2.5 Mg Tablet PO 2.5 mg BID JUAN CARLOS Administration Protocol Hydrocortisone 1 applic 07/24/23 09:00 Hydrocortisone 1% Oint 28.35 Gm Tube TOPICAL BID JUAN CARLOS Sodium Chloride 1,000 mls @ 20 mls/hr 07/23/23 19:30 07/23/23 19:36 Saline 0.9% IV 20 mls/hr .Q24H JUAN CARLOS Administration Insulin Aspart 0 unit 07/24/23 07:30 07/24/23 07:39 Insulin Aspart (Novolog) 100 Unit/Ml Vial SQ Not Given ACHS JUAN CARLOS Isosorbide Mononitrate 30 mg 07/24/23 09:00 07/24/23 09:20 Isosorbide Mononitrate Er 30 Mg Tab.Er.24h PO Not Given DAILY JUAN CARLOS Levothyroxine Sodium 112 mcg 07/24/23 07:00 07/24/23 08:14 Levothyroxine 112 Mcg Tab PO 112 mcg DAILY@0700 JUAN CARLOS Administration Liothyronine Sodium 5 mcg 07/24/23 09:00 07/24/23 08:15 Liothyronine Sodium 5 Mcg Tab PO 5 mcg DAILY JUAN CARLOS Administration Loratadine 10 mg 07/24/23 09:00 07/24/23 08:14 Loratadine 10 Mg Tab PO 10 mg DAILY JUAN CARLOS Administration Metoprolol Tartrate 25 mg 07/24/23 09:00 07/24/23 08:15 Metoprolol Tartrate 25 Mg Tab PO 25 mg BID JUAN CARLOS Administration Montelukast Sodium 10 mg 07/24/23 09:00 07/24/23 08:15 Montelukast 10 Mg Tab PO 10 mg DAILY JUAN CARLOS Administration Morphine Sulfate 4 mg 07/23/23 19:30 07/24/23 05:54 Morphine Sulfate 4 Mg/Ml Syringe IV 4 mg Q4HR PRN Administration Severe Pain (Scale 7 to 10) Naloxone HCl 0.2 mg 07/23/23 19:30 Naloxone 0.4 Mg/Ml 1 Ml Vial IV Q2M PRN Opioid Reversal Sertraline HCl 100 mg 07/24/23 09:00 07/24/23 08:15 Sertraline 100 Mg Tab PO 100 mg DAILY JUAN CARLOS Administration Intake and Output 07/23/23 07/24/23 07/24/23 22:59 06:59 14:59 Output Total 400 Balance -400 Output: Urine 400 Other: Weight 72.575 kg 07/23/23 18:18 07/23/23 18:18
--- NOTE | 2023-07-24 15:03 | P.CNNES ---
History of Present Illness Consult date: 07/24/23 Requesting physician: Ricky Avila Reason for Consult: syncope History of Present Illness: this is an 88-year-old woman who presented emergency department because of syncopal episode. History is obtained from medical record that. Patient is unable to provide history. It seems that the patient's was transferred from [facility] for bilateral humeral fracture and she apparently had a syncopal episode and was on the ground her. She cannot tell me how she had a syncopal episode and what transpired. She denies any history of seizures. She states she resides by herself. She is unable to notify me if she had prior syncopal episode prior to this. some of the workup during his hospital visit consisted of: sodium is 137, glucose is 163. Calcium is 8.7. CT of the head is reported as no acute intracranial process. Nonspecific white matter changes, likely secondary due to chronic small vessel ischemic disease.I personally reviewed the CT and I agree with the report. carotid duplex was reported as no evidence of for hemodynamically significant stenosis. Limited 2-D echo was reported as limited study mild global disease and contractility estimated ejection fraction of about 45%. Aortic valve sclerosis with mild restriction stenosis not quantified. Review of Systems review of system is limited but her positive as negative as per HPI Past Medical History Past Medical History: Atrial Fibrillation, Coronary Artery Disease (CAD), Hy pertension, Myocardial Infarction ([place]) Additional Past Medical History / Comment(s): Glaucoma and macular degeneration Last Myocardial Infarction Date:: n/a History of Any Multi-Drug Resistant Organisms: None Reported Past Surgical History: Appendectomy, Cholecystectomy, Heart Catheterization With Stent Additional Past Surgical History / Comment(s): back surgery Date of Last Stent Placement:: n/a Past Psychological History: No Psychological Hx Reported Smoking Status: Never smoker Past Alcohol Use History: None Reported Past Drug Use History: None Reported Medications and Allergies Home Medications Medication Instructions Recorded Confirmed Type Apixaban [Eliquis] 2.5 mg PO BID 09/29/22 07/23/23 History Furosemide [Lasix] 20 mg PO DAILY 09/29/22 07/23/23 History Levothyroxine Sodium 112 mcg PO DAILY 09/29/22 07/23/23 History Liothyronine Sodium [Cytomel] 5 mcg PO DAILY 09/29/22 07/23/23 History Metoprolol Tartrate 25 mg PO BID 09/29/22 07/23/23 History Montelukast [Singulair] 10 mg PO DAILY 09/29/22 07/23/23 History Potassium Chloride ER [K-Dur 10] 10 meq PO DAILY 09/29/22 07/23/23 History Sertraline [Zoloft] 100 mg PO DAILY 09/29/22 07/23/23 History Albuterol Inhaler [Ventolin Hfa 2 puff INHALATION RT-QID PRN 02/10/23 07/23/23 History Inhaler] Isosorbide Mononitrate ER [Imdur] 30 mg PO BID 02/10/23 07/23/23 History Hydrocortisone Oint 1 applic TOPICAL BID 07/23/23 07/23/23 History [Hydrocortisone 2.5% Oint] Loratadine [Claritin] 10 mg PO DAILY 07/23/23 07/23/23 History Allergies Allergy/AdvReac Type Severity Reaction Status Date / Time Iodinated Contrast Media Allergy Unknown Verified 07/23/23 19:17 sulfamethoxazole Allergy Unknown Verified 07/23/23 19:17 [From Bactrim] trimethoprim [From Bactrim] Allergy Unknown Verified 07/23/23 19:17 Physical Examination - Vital Signs Vital Signs: Vital Signs Temp Pulse Resp BP Pulse Ox 07/24/23 12:58 98 18 119/68 95 07/24/23 11:27 102 H 18 114/73 96 07/24/23 08:00 97.9 F 88 18 127/69 95 07/24/23 05:52 122 H 18 113/60 96 07/24/23 01:26 122 H 18 117/59 97 07/24/23 00:26 114 H 18 119/81 96 07/23/23 22:28 98.1 F 104 H 18 140/88 97 07/23/23 20:00 71 16 129/81 95 07/23/23 19:29 76 16 134/78 98 07/23/23 17:52 97.7 F 88 20 123/79 93 L Intake and Output 07/23/23 07/24/23 07/24/23 22:59 06:59 14:59 Output Total 400 Balance -400 Output: Urine 400 Other: Weight 72.575 kg General: Lying in bed and does not appear in acute distress. Neuro: the patient is awake but slow to respond. She is oriented to self. she stated she is in the hospital but does not know the name. She is following some simple commands. The pupils are round equal reactive to light. Pupils are round 3bilaterally. Visual lal are full to consultation. No facial weakness. No dysarthria from limited language. Motor strength is limited patient has a sling over the right upper extremity and the has a brace over the left upper extremity and opens and closes hand. Is briefly lifting lower extremity above gravity. Sensation is normal to touch. Reflexes is unable to assess because of her cooperation. Results - Laboratory Findings CBC and BMP: 07/23/23 18:18 07/23/23 18:18 Abnormal Lab Findings: Abnormal Labs 07/23/23 07/23/23 07/24/23 18:18 18:18 07:34 WBC 13.4 H Neutrophils # 12.2 H Lymphocytes # 0.5 L Glucose 163 H POC Glucose (mg/dL) 140 H Urine Appearance Urine Protein Urine RBC Amorphous Sediment Urine Mucus 07/24/23 07/24/23 07:38 13:03 WBC Neutrophils # Lymphocytes # Glucose POC Glucose (mg/dL) 144 H Urine Appearance Cloudy H Urine Protein Trace H Urine RBC 6 H Amorphous Sediment Occasional H Urine Mucus Rare H Assessment and Plan Assessment: This is an 88-year-old woman with had a syncopal episode and she states that she resides at homewas found on the floor. She denies any history of seizures. syncopal episode of unknown etiology.unsure of its due to arrhythmia. Bilateral humeral fracture due to the fall from the syncopal episodes Ischemic cardiomyopathy Per minute it are fibrillation Hypertension Dyslipidemia History of coronary artery disease status post stenting Plan: routine EEG is ordered pending I ordered MRI of the brain Cardiology is consulted. patient is on Eliquis for the atrial fibrillation. Orthopedic team was consulted We'll defer the rest of the medical management to primary and other specialists Thank you for consultation Time with Patient: Greater than 30
[2023-07-24 16:58] LABS: Glucose,Whole Blood 118 mg/dL (70-110)
[2023-07-24 21:21] LABS: Glucose,Whole Blood 121 mg/dL (70-110)
--- NOTE | 2023-07-24 23:57 | EEG ---
ELECTROENCEPHALOGRAM REPORT CLINICAL HISTORY: This is an 88-year-old woman with a syncopal episode. The video EEG is obtained to evaluate for seizure epileptiform activity. RELEVANT MEDICATION: The patient is not on any antiepileptic drugs. EEG TYPE: A routine 21-channel EEG with video using the 10/20 electrode placement system. DESCRIPTION: Wakefulness is only obtained. During awake state, the posterior-dominant rhythm consists of [id number] voltage of 6.5 to 7.5 hertz activity. There is no physiological stage 2 sleep architecture. There is no focal slowing. Interictal and ictal is none. ACTIVATION PROCEDURE: Photic stimulation did not evoke a posterior driving response. There is no abnormality during the photic stimulation. Hyperventilation is not performed. CLINICAL INTERPRETATION: This is an abnormal routine EEG. The background slowing is suggestive of mild encephalopathy. There is no focal slowing, epileptiform discharge, or seizure on the EEG. Clinical correlation is recommended. RAMSES / ADINA: [id number] / [email or web address]
[2023-07-25 06:07] LABS: Glucose,Whole Blood 95 mg/dL (70-110)
[2023-07-25] MEDS: METOPROLOL TARTRATE 50 MG TAB PO STA (06:16)
[2023-07-25 09:22] LABS: HCT 39.3 % (34.0-46.0); HGB 12.2 gm/dL (11.4-16.0); Hypochromasia Moderate; MCH 30.7 pg (25.0-35.0); MCV 99.1 fL (80.0-100.0); Mean Platelet Volume 9.7; Platelet Count 210 k/uL (150-450); RBC 3.96 m/uL (3.80-5.40); RDW 14.2 % (11.5-15.5); WBC 9.1 k/uL (3.8-10.6)
[2023-07-25] MEDS: METOPROLOL TARTRATE 25 MG TAB PO SCH (09:48)
[2023-07-25 10:04] LABS: ALT 667 U/L (4-34); African American GFR (CKD) 87 (>60 ml/min/1.73 sqM); Albumin 3.2 g/dL (3.5-5.0); Alkaline Phosphatase 241 U/L (38-126); Anion Gap 8 mmol/L; Blood Urea Nitrogen 24 mg/dL (7-17); Calcium 8.6 mg/dL (8.4-10.2); Carbon Dioxide 21 mmol/L (22-30); Chloride 106 mmol/L (98-107); Glucose 165 mg/dL (74-99); Non-African American GFR(CKD) 75 (>60 ml/min/1.73 sqM); Potassium 4.4 mmol/L (3.5-5.1); Sodium 135 mmol/L (137-145); Total Protein 6.1 g/dL (6.3-8.2)
[2023-07-25 10:10] LABS: AST 815 U/L (14-36)
[2023-07-25 11:22] LABS: Glucose,Whole Blood 143 mg/dL (70-110)
--- NOTE | 2023-07-25 15:08 | P.PN ---
Subjective Progress Note Date: 07/25/23 Consult reason: sycope History of present illness: History of present illness: This is an 88-year-old female patient of Dr. Patel with past medical history of coronary artery disease with prior stenting of the LAD, nonischemic cardiomyopathy and permanent atrial fibrillation as well as valvular heart disease, aortic stenosis, mitral regurgitation, hypertension, dyslipidemia. We have been asked to evaluate the patient for syncopal episode. Patient initially presented to [facility] and found to have bilateral humeral fractures. Patient was then transferred to [facility]. We have been asked to evaluate the patient for syncope. EKG atrial fibrillation with ventricular rate of 104 bpm Chest x-ray: No acute process. Right humeral head fracture. Bilateral humerus: Bilateral humeral head fractures. Carotid Doppler. No evidence of hemodynamically significant stenosis. CT of the brain reveals no acute intracranial process. Echocardiogram reveals EF of 45%. Aortic valve sclerosis with mild restriction stenosis not quantified. Mitral annular calcification. WBC 13.4, hemoglobin 12.7, platelet count 262. INR 1. Electrolytes and renal function normal. Troponin negative x 1. proBNP 1979. Urinalysis RBC 6. Trace protein. Home cardiac medications: Eliquis 2.5 mg twice daily, Lasix 20 mg daily, Imdur 30 mg twice daily, metoprolol tartrate 25 mg twice daily, potassium chloride 10 mill equivalents daily. /10 Blood pressure is 133/63, heart rate in the [id number], pulse ox 95% on 2 L nasal cannula. Repeat blood work reveals hemoglobin of 12.2. Sodium 135, potassium 4.4, BUN 24 creatinine 0.72. Patient noted to have elevated liver function tests with AST 815, ALT 667, alkaline phosphatase 241. Telemetry atrial fibrillation. Early this morning, due to tachycardia, Lopressor was increased to 50 mg twice daily which will be continued. Physical examination: Gen: This is a an 88-year-old female in no acute distress. VS: reviewed HEENT: Head is atraumatic, normocephalic. Pupils equal, round. Sclerae is ani cteric. NECK: Supple. No JVD. LUNGS: Clear to auscultation. No wheezes or rhonchi. No intercostal retractions. HEART: Irregular rate and rhythm. No murmur. ABDOMEN: Soft No tenderness. EXTREMITIES: No pedal edema. No calf tenderness. NEUROLOGICAL: Patient is awake, alert and oriented x3. Assessment: Fall, syncopal episode rule out arrhythmia, hypotension Bilateral humeral fractures Mild tachycardia most likely secondary to pain Ischemic cardiomyopathy Permanent atrial fibrillation Hypertension Dyslipidemia Coronary artery disease Elevated liver function test Plan: Resume patient's home cardiac medications Discontinue Imdur Lopressor increased to 50 mg twice daily Continue telemetry monitoring Further recommendations to follow based upon clinical course Nurse practitioner note has been reviewed, I agree with documented findings and plan of care. Patient was seen and examined. Objective - Vital Signs Vital signs: Vital Signs Temp 98.0 F 07/25/23 04:00 Pulse 98 07/25/23 09:38 Resp 18 07/25/23 09:38 BP 133/63 07/25/23 09:38 Pulse Ox 95 07/25/23 09:38 FiO2 Intake & Output 07/24/23 07/25/23 07/25/23 18:59 06:59 18:59 Intake Total 110 Output Total 540 200 200 Balance -540 -200 -90 Weight 72.575 kg Intake: Oral 110 Output: Urine 540 200 200 Other: Voiding Method Indwelling Catheter Indwelling Catheter # Voids 1 - Labs CBC & Chem 7: 07/25/23 08:47 07/25/23 08:47 Labs: Abnormal Lab Results - Last 24 Hours (Table) 07/24/23 07/24/23 07/24/23 Range/Units 13:03 16:56 21:20 Sodium (137-145) mmol/L Carbon Dioxide (22-30) mmol/L BUN (7-17) mg/dL Glucose (74-99) mg/dL POC Glucose (mg/dL) 144 H 118 H 121 H (70-110) mg/dL AST (14-36) U/L ALT (4-34) U/L Alkaline Phosphatase (38-126) U/L Total Protein (6.3-8.2) g/dL Albumin (3.5-5.0) g/dL 07/25/23 07/25/23 Range/Units 08:47 11:21 Sodium 135 L (137-145) mmol/L Carbon Dioxide 21 L (22-30) mmol/L BUN 24 H (7-17) mg/dL Glucose 165 H (74-99) mg/dL POC Glucose (mg/dL) 143 H (70-110) mg/dL AST 815 H (14-36) U/L ALT 667 H (4-34) U/L Alkaline Phosphatase 241 H (38-126) U/L Total Protein 6.1 L (6.3-8.2) g/dL Albumin 3.2 L (3.5-5.0) g/dL
[2023-07-25 16:24] LABS: Glucose,Whole Blood 127 mg/dL (70-110)
[2023-07-25 20:54] LABS: Glucose,Whole Blood 122 mg/dL (70-110)
--- NOTE | 2023-07-26 05:28 | P.PN ---
Subjective Progress Note Date: 07/25/23 HISTORY OF PRESENT ILLNESS: 88-year-old one of our office patient with past history of coronary artery disease, post IN, hypertension, hyperlipidemia, history of atrial fibrillation with rapid ventricular response, post angioplasty and stent placement, history of osteoporosis, hypothyroidism, hyperlipidemia, generalized osteoarthritis. She was transferred from the emergency department at [facility] for bilateral humeral fracture she had apparently syncopal episode: Ground landed on both arms. Fracture both humerus and developed to have significant pain in both sides, also had trauma to the left forehead which apparently brain scan was done at [facility] and did not show any bleed.. Was placed in a sling and has syncopal episode not will explain without any seizure. She was requested to be transferred by [facility] hospitalist group to [facility] will be seen cardiology and orthopedic. Patient continued to have severe pain and discomfort she does not remember what happened exactly except could not protect herself with her syncopal episode as drop in causing her to have significant episode with no other trauma no head trauma beside her upper extremity. 07/25/2023: Patient was seen urology she been followed for ischemic cardiomyopathy along with A-fib along with coronary artery disease and likely change with arrhythmia and hypertension. Her Imdur was decreased to 30 mg twice a day and if continue to be tachycardic will increase her beta-blair. Also patient will have orthostatic change at this point. Patient also seen neurology order an MRI of the brain along with an EEG awaiting for final with cardiology consultation the patient been treated for A-fib so far no major obvious reason for her syncopal episode to explain this event. Most likely patient require little blood longer-term heart monitor whether 30 days h eart monitor or loop recorder but will continue to watch her hemodynamic status carefully specially after surgery.From orthopedic standpoint she seen Dr. Torres who found displaced right three-part proximal humerus fracture, minimally displaced left 2 part proximal humerus fracture with recommendation to do nonsurgical treatment for both proximal humerus fracture she should be strictly nonweightbearing on both upper extremity in sling to have follow-up office every 1 to 2 weeks for monitor for improvement of the fracture with time.. Will continue pain management and when patient is more stable she can probably be discharged not been able to move or use her upper extremity and will probably require to go to SNF center. Will consult social scientist and prepare for it. REVIEW OF SYSTEMS: CONSTITUTIONAL: Well-developed no acute respiratory distress. EYES: No icterus sclerae, no conjunctivitis. EARS, NOSE, MOUTH, THROAT, and FACE: No sore throat, lymphadenopathy, carotid bruits or deformity. RESPIRATORY: No SOB cough or wheezes. CARDIOVASCULAR: No chest pain or angina positive palpitation. GASTROINTESTINAL: No Abd pain, Nausea or vomiting, no Diarrhea or constipation, No GI Bleed, no distention or masses. GENITOURINARY: Negative for Hematuria or UTI, no kidney stones. INTEGUMENT/BREAST: Negative for any muscular injury with mild osteoarthritis.. HEMATOLOGIC/LYMPHATIC: Negative for bleed or purpura. MUSCULOSKELTAL: Bilateral upper extremity pain and discomfort with slight swelling both arm in sling. NEURLOGICAL: No LOC, Sz or syncope, blurred vision dizziness or abnormality.. BEHAVIORAL/PSYCH: Negative. ENDOCRINE: Negative. PHYSICAL EXAMINATION: General Appearance: Alert, cooperative, no distress, appears stated age. No sign of head trauma. Neck HEENT: Supple, no lymphadenopathy, no thyroid enlargement, no carotid bruits. Lungs: Clear to auscultation without crackles or wheezes no rhonchi, no deformit y. Chest Wall: Decreased expansion with deep inspiration no tenderness and no deformity was found on exam, no costochondral pain or discomfort. Heart: Irregular rate and rhythm, S1, S2 positive systolic murmur. Back: Symmetric, no curvature, ROM normal, no CVA tenderness. Slight scoliosis. Abdomen: Soft, non-tender, bowel sounds active all four quadrants, no masses, no organomegaly. Extremities: Lower extremity with generalized arthritis, very trace edema in the lower part of her leg. Upper extremity both are in sling with significant pain discomfort and swelling in the upper part of her humerus area. Pulses: 2+ and symmetric. Skin: Skin color, texture, tugor normal, no rashes or lesions. Neurologic: Alert oriented x3 cranial nerves II through XII intact, no motor deficit, no abnormal balance or gait. ASSESSMENT AND PLAN: _Syncopal episode: Still seeing cardiology neurology no major workup decide continue to watch her hemodynamic status and orthostatic change patient will require probably longer-term heart monitor, EEG of the brain was negative, still waiting for MRI of the brain. _Bilateral humerus fracture: She is seen orthopedic continue conservative management no surgical repair bilateral sling with no weightbearing patient required physical therapy. _Close head trauma with left forehead bruise: No sign of bleed and did not have any symptoms afterward no head concussion. _A-fib with RVR: Pulse rate on monitor seems to do well continue beta-blair titrate dose higher if she still tachycardic from her pain. _Atherosclerotic heart disease post IN with stent placement: Has been on secondary prevention remain on statin, aspirin, anticoagulation along with beta- blair. No chest pain or angina. _Hypothyroidism: Continue both levothyroxine along with Cytomel. _Allergy: Has been on loratadine and Singulair on regular basis and apparently it is working good for her. _Ischemic cardiomyopathy with ejection fraction of 45%: Will hold off on diuretics for now till after the clearance with her workup for syncope in the meanwhile continue isosorbide mononitrate, Eliquis, metoprolol she is not on any ARB. Mostly his blood pressure still little low. _Mild mitral regurgitation: Still on medical management. _Hyperglycemia: No official diagnosis of diabetes, Accu-Chek with sliding scale coverage will be done for now. Prognosis: Fair. Discharge planning: drag out worker with physical therapy start the process patient probably will need to go to SNF when she is ready. Objective - Vital Signs Vital signs: Vital Signs Temp 98.1 F 07/25/23 00:00 Pulse 104 H 07/25/23 00:00 Resp 18 07/25/23 00:00 BP 127/73 07/25/23 00:00 Pulse Ox 96 07/25/23 00:00 FiO2 Intake & Output 07/24/23 07/24/23 07/25/23 06:59 18:59 06:59 Output Total 540 200 Balance -540 -200 Weight 72.575 kg Output: Urine 540 200 Other: Voiding Method Indwelling Catheter - Labs CBC & Chem 7: 07/25/23 08:47 07/25/23 08:47 Labs: Abnormal Lab Results - Last 24 Hours (Table) 07/24/23 07/24/23 07/24/23 Range/Units 07:34 07:38 13:03 POC Glucose (mg/dL) 140 H 144 H (70-110) mg/dL Urine Appearance Cloudy H (Clear) Urine Protein Trace H (Negative) Urine RBC 6 H (0-5) /hpf Amorphous Sediment Occasional H (None) /hpf Urine Mucus Rare H (None) /hpf 07/24/23 07/24/23 Range/Units 16:56 21:20 POC Glucose (mg/dL) 118 H 121 H (70-110) mg/dL Urine Appearance (Clear) Urine Protein (Negative) Urine RBC (0-5) /hpf Amorphous Sediment (None) /hpf Urine Mucus (None) /hpf
[2023-07-26 06:11] LABS: Glucose,Whole Blood 109 mg/dL (70-110)
[2023-07-26 08:03] LABS: HCT 38.3 % (34.0-46.0); HGB 11.9 gm/dL (11.4-16.0); MCH 30.5 pg (25.0-35.0); MCHC 31.2 g/dL (31.0-37.0); MCV 97.9 fL (80.0-100.0); Mean Platelet Volume 9.5; Platelet Count 240 k/uL (150-450); RBC 3.91 m/uL (3.80-5.40); RDW 13.9 % (11.5-15.5); WBC 11.6 k/uL (3.8-10.6)
[2023-07-26] MEDS ORDERED: ONDANSETRON 4 MG TAB PO PRN (08:17)
[2023-07-26 08:24] LABS: ALT 438 U/L (4-34); AST 277 U/L (14-36); African American GFR (CKD) >90 (>60 ml/min/1.73 sqM); Albumin 3.2 g/dL (3.5-5.0); Alkaline Phosphatase 219 U/L (38-126); Anion Gap 10 mmol/L; Blood Urea Nitrogen 23 mg/dL (7-17); Calcium 8.8 mg/dL (8.4-10.2); Carbon Dioxide 20 mmol/L (22-30); Chloride 107 mmol/L (98-107); Glucose 114 mg/dL (74-99); Non-African American GFR(CKD) 80 (>60 ml/min/1.73 sqM); Potassium 4.7 mmol/L (3.5-5.1); Sodium 137 mmol/L (137-145); Total Bilirubin 0.9 mg/dL (0.2-1.3)
[2023-07-26] MEDS: traMADol 50 MG TAB PO SCH (08:55)
[2023-07-26 11:25] LABS: Glucose,Whole Blood 127 mg/dL (70-110)
--- NOTE | 2023-07-26 13:44 | P.PN ---
Subjective Progress Note Date: 07/26/23 Consult reason: sycope History of present illness: History of present illness: This is an 88-year-old female patient of Dr. Patel with past medical history of coronary artery disease with prior stenting of the LAD, nonischemic cardiomyopathy and permanent atrial fibrillation as well as valvular heart disease, aortic stenosis, mitral regurgitation, hypertension, dyslipidemia. We have been asked to evaluate the patient for syncopal episode. Patient initially presented to [facility] and found to have bilateral humeral fractures. Patient was then transferred to [facility]. We have been asked to evaluate the patient for syncope. EKG atrial fibrillation with ventricular rate of 104 bpm Chest x-ray: No acute process. Right humeral head fracture. Bilateral humerus: Bilateral humeral head fractures. Carotid Doppler. No evidence of hemodynamically significant stenosis. CT of the brain reveals no acute intracranial process. Echocardiogram reveals EF of 45%. Aortic valve sclerosis with mild restriction stenosis not quantified. Mitral annular calcification. WBC 13.4, hemoglobin 12.7, platelet count 262. INR 1. Electrolytes and renal function normal. Troponin negative x 1. proBNP 1979. Urinalysis RBC 6. Trace protein. Home cardiac medications: Eliquis 2.5 mg twice daily, Lasix 20 mg daily, Imdur 30 mg twice daily, metoprolol tartrate 25 mg twice daily, potassium chloride 10 mill equivalents daily. 07/24 Blood pressure is 133/63, heart rate in the [id number], pulse ox 95% on 2 L nasal cannula. Repeat blood work reveals hemoglobin of 12.2. Sodium 135, potassium 4.4, BUN 24 creatinine 0.72. Patient noted to have elevated liver function tests with AST 815, ALT 667, alkaline phosphatase 241. Telemetry atrial fibrillation. Early this morning, due to tachycardia, Lopressor was increased to 50 mg twice daily which will be continued. 07/25 Heart rate is running right around 100, blood pressure 135/40, pulse ox 96% on 2 L nasal cannula. Telemetry is atrial fibrillation repeat blood work reveals WBC 11.6, hemoglobin 9.9. BUN 23 creatinine 0.62. Potassium 4.7. Liver function test remain elevated. No medication changes made today. Physical examination: Gen: This is a an 88-year-old female in no acute distress. VS: reviewed HEENT: Head is atraumatic, normocephalic. Pupils equal, round. Sclerae is anicteric. NECK: Supple. No JVD. LUNGS: Clear to auscultation. No wheezes or rhonchi. No intercostal retractions. HEART: Irregular rate and rhythm. No murmur. ABDOMEN: Soft No tenderness. EXTREMITIES: No pedal edema. No calf tenderness. NEUROLOGICAL: Patient is awake, alert and oriented x3. Assessment: Fall, syncopal episode rule out arrhythmia, hypotension Bilateral humeral fractures Mild tachycardia most likely secondary to pain Ischemic cardiomyopathy Permanent atrial fibrillation Hypertension Dyslipidemia Coronary artery disease Elevated liver function test Plan: Continue patient's home cardiac medications Continue higher dose of Lopressor 50 mg twice daily Continue telemetry monitoring Further recommendations to follow based upon clinical course Nurse practitioner note has been reviewed, I agree with documented findings and plan of care. Patient was seen and examined. Objective - Vital Signs Vital signs: Vital Signs Temp 98.2 F 07/26/23 08:43 Pulse 110 H 07/26/23 08:43 Resp 15 07/26/23 08:43 BP 135/40 07/26/23 08:43 Pulse Ox 96 07/26/23 08:43 FiO2 Intake & Output 07/25/23 07/26/23 07/26/23 18:59 06:59 18:59 Intake Total 442 118 Output Total 200 300 Balance 242 -300 118 Intake: Oral 442 118 Output: Urine 200 300 Other: Voiding Method Indwelling Catheter External Catheter # Voids 1 1 - Labs CBC & Chem 7: 07/26/23 07:27 07/26/23 07:27 Labs: Abnormal Lab Results - Last 24 Hours (Table) 07/25/23 07/25/23 07/25/23 Range/Units 11:21 16:20 20:52 WBC (3.8-10.6) k/uL Carbon Dioxide (22-30) mmol/L BUN (7-17) mg/dL Glucose (74-99) mg/dL POC Glucose (mg/dL) 143 H 127 H 122 H (70-110) mg/dL AST (14-36) U/L ALT (4-34) U/L Alkaline Phosphatase (38-126) U/L Total Protein (6.3-8.2) g/dL Albumin (3.5-5.0) g/dL 07/26/23 07/26/23 Range/Units 07:27 07:27 WBC 11.6 H (3.8-10.6) k/uL Carbon Dioxide 20 L (22-30) mmol/L BUN 23 H (7-17) mg/dL Glucose 114 H (74-99) mg/dL POC Glucose (mg/dL) (70-110) mg/dL AST 277 H (14-36) U/L ALT 438 H (4-34) U/L Alkaline Phosphatase 219 H (38-126) U/L Total Protein 6.0 L (6.3-8.2) g/dL Albumin 3.2 L (3.5-5.0) g/dL
--- NOTE | 2023-07-26 13:59 | P.PN ---
Subjective Progress Note Date: 07/26/23 I am following-up with patient and feels about the same. Objective - Vital Signs Vital signs: Vital Signs Temp 97.8 F 07/26/23 12:23 Pulse 101 H 07/26/23 12:23 Resp 18 07/26/23 12:23 BP 121/68 07/26/23 12:23 Pulse Ox 96 07/26/23 08:43 FiO2 Intake & Output 07/25/23 07/26/23 07/26/23 18:59 06:59 18:59 Intake Total 442 118 Output Total 200 300 300 Balance 242 -300 -182 Intake: Oral 442 118 Output: Urine 200 300 300 Other: Voiding Method Indwelling Catheter External Catheter # Voids 1 1 - Exam General: Lying in bed and is not in acute distress. Neuro: Limited. Initially she was sleeping and had to wake her up. She is oriented to self and stated she is in the hospital. she stated the year is . Minimally slow to respond. Is following commands. Pupils are round, equal and reactive to light. Visual lal are full. EOM intact and no nystagmus. No facial weakness. No dysarthria. Motor: Strength is limited and stated had bilateral shoulder pain. Wiggling toes. some of the workup during his hospital visit consisted of: sodium is 137, glucose is 163. Calcium is 8.7. CT of the head is reported as no acute intracranial process. Nonspecific white matter changes, likely secondary due to chronic small vessel ischemic disease.I personally reviewed the CT and I agree with the report. carotid duplex was reported as no evidence of for hemodynamically significant stenosis. Limited 2-D echo was reported as limited study mild global disease and contractility estimated ejection fraction of about 45%. Aortic valve sclerosis with mild restriction stenosis not quantified. Routine EEG: Is abnormal. The background slowing is suggestive of mild encephalopathy. There is no focal slowing, epileptiform discharge or seizure on the EEG. - Labs CBC & Chem 7: 07/26/23 07:27 07/26/23 07:27 Labs: Abnormal Lab Results - Last 24 Hours (Table) 07/25/23 07/25/23 07/26/23 Range/Units 16:20 20:52 07:27 WBC 11.6 H (3.8-10.6) k/uL Carbon Dioxide (22-30) mmol/L BUN (7-17) mg/dL Glucose (74-99) mg/dL POC Glucose (mg/dL) 127 H 122 H (70-110) mg/dL AST (14-36) U/L ALT (4-34) U/L Alkaline Phosphatase (38-126) U/L Total Protein (6.3-8.2) g/dL Albumin (3.5-5.0) g/dL 07/26/23 07/26/23 Range/Units 07:27 11:24 WBC (3.8-10.6) k/uL Carbon Dioxide 20 L (22-30) mmol/L BUN 23 H (7-17) mg/dL Glucose 114 H (74-99) mg/dL POC Glucose (mg/dL) 127 H (70-110) mg/dL AST 277 H (14-36) U/L ALT 438 H (4-34) U/L Alkaline Phosphatase 219 H (38-126) U/L Total Protein 6.0 L (6.3-8.2) g/dL Albumin 3.2 L (3.5-5.0) g/dL Assessment and Plan Assessment: This is an 88-year-old woman with had a syncopal episode and she states that she resides at homewas found on the floor. She denies any history of seizures. syncopal episode of unknown etiology.unsure of its due to arrhythmia. Bilateral humeral fracture due to the fall from the syncopal episodes Ischemic cardiomyopathy Per minute it are fibrillation Hypertension Dyslipidemia History of coronary artery disease status post stenting Plan: I ordered MRI of the brain but it was cancelled since has pain stimulator is not compatible. Cardiology is on board. Consider loop recorder. patient is on Eliquis for the atrial fibrillation. Orthopedic team was consulted We'll defer the rest of the medical management to primary and other specialists Recommend the patient to follow-up with neurologist as outpatient within 2-3 weeks. The plan is discussed with patient and her nurse. There is no further neurological work-up. Will sign off. Please reconsult if needed. Time with Patient: Less than 30
[2023-07-26 16:39] LABS: Glucose,Whole Blood 117 mg/dL (70-110)
[2023-07-26 20:05] LABS: Glucose,Whole Blood 184 mg/dL (70-110)
[2023-07-27 06:17] LABS: Glucose,Whole Blood 112 mg/dL (70-110)
--- NOTE | 2023-07-27 06:25 | P.PN ---
Subjective Progress Note Date: 07/26/23 HISTORY OF PRESENT ILLNESS: 88-year-old one of our office patient with past history of coronary artery disease, post IL, hypertension, hyperlipidemia, history of atrial fibrillation with rapid ventricular response, post angioplasty and stent placement, history of osteoporosis, hypothyroidism, hyperlipidemia, generalized osteoarthritis. She was transferred from the emergency department at [facility] for bilateral humeral fracture she had apparently syncopal episode: Ground landed on both arms. Fracture both humerus and developed to have significant pain in both sides, also had trauma to the left forehead which apparently brain scan was done at [facility] and did not show any bleed.. Was placed in a sling and has syncopal episode not will explain without any seizure. She was requested to be transferred by [facility] hospitalist group to [facility] will be seen cardiology and orthopedic. Patient continued to have severe pain and discomfort she does not remember what happened exactly except could not protect herself with her syncopal episode as drop in causing her to have significant episode with no other trauma no head trauma beside her upper extremity. 07/25/2023: Patient was seen urology she been followed for ischemic cardiomyopathy along with A-fib along with coronary artery disease and likely change with arrhythmia and hypertension. Her Imdur was decreased to 30 mg twice a day and if continue to be tachycardic will increase her beta-blair. Also patient will have orthostatic change at this point. Patient also seen neurology order an MRI of the brain along with an EEG awaiting for final with cardiology consultation the patient been treated for A-fib so far no major obvious reason for her syncopal episode to explain this event. Most likely patient require little blood longer-term heart monitor whether 30 days h eart monitor or loop recorder but will continue to watch her hemodynamic status carefully specially after surgery.From orthopedic standpoint she seen Dr. Torres who found displaced right three-part proximal humerus fracture, minimally displaced left 2 part proximal humerus fracture with recommendation to do nonsurgical treatment for both proximal humerus fracture she should be strictly nonweightbearing on both upper extremity in sling to have follow-up office every 1 to 2 weeks for monitor for improvement of the fracture with time.. Will continue pain management and when patient is more stable she can probably be discharged not been able to move or use her upper extremity and will probably require to go to SNF center. Will consult social insurance analyst and prepare for it. 07/26/2023: Slightly with abnormal liver function test, will repeat liver function test and abdominal ultrasound today if all negative and no abnormality require any attention patient still able to probably go to rehab in the afternoon today otherwise if there is any abnormality further attention might be needed. Because of the syncopal episode this is still can be liver shock syndrome initially created problem and it resolved. REVIEW OF SYSTEMS: CONSTITUTIONAL: Well-developed no acute respiratory distress. EYES: No icterus sclerae, no conjunctivitis. EARS, NOSE, MOUTH, THROAT, and FACE: No sore throat, lymphadenopathy, carotid bruits or deformity. RESPIRATORY: No SOB cough or wheezes. CARDIOVASCULAR: No chest pain or angina positive palpitation. GASTROINTESTINAL: No Abd pain, Nausea or vomiting, no Diarrhea or constipation, No GI Bleed, no distention or masses. GENITOURINARY: Negative for Hematuria or UTI, no kidney stones. INTEGUMENT/BREAST: Negative for any muscular injury with mild osteoarthritis.. HEMATOLOGIC/LYMPHATIC: Negative for bleed or purpura. MUSCULOSKELTAL: Bilateral upper extremity pain and discomfort with slight swelling both arm in sling. NEURLOGICAL: No LOC, Sz or syncope, blurred vision dizziness or abnormality.. BEHAVIORAL/PSYCH: Negative. ENDOCRINE: Negative. PHYSICAL EXAMINATION: General Appearance: Alert, cooperative, no distress, appears stated age. No sign of head trauma. Neck HEENT: Supple, no lymphadenopathy, no thyroid enlargement, no carotid bruits. Lungs: Clear to auscultation without crackles or wheezes no rhonchi, no deformity. Chest Wall: Decreased expansion with deep inspiration no tenderness and no deformity was found on exam, no costochondral pain or discomfort. Heart: Irregular rate and rhythm, S1, S2 positive systolic murmur. Back: Symmetric, no curvature, ROM normal, no CVA tenderness. Slight scoliosis. Abdomen: Soft, non-tender, bowel sounds active all four quadrants, no masses, no organomegaly. Extremities: Lower extremity with generalized arthritis, very trace edema in the lower part of her leg. Upper extremity both are in sling with significant pain discomfort and swelling in the upper part of her humerus area. Pulses: 2+ and symmetric. Skin: Skin color, texture, tugor normal, no rashes or lesions. Neurologic: Alert oriented x3 cranial nerves II through XII intact, no motor deficit, no abnormal balance or gait. ASSESSMENT AND PLAN: _Syncopal episode: Still seeing cardiology neurology no major workup decide continue to watch her hemodynamic status and orthostatic change patient will require probably longer-term heart monitor, EEG of the brain was negative, so no neurology explanation to her syncope patient require probably longer-term heart monitor. _Bilateral humerus fracture: She is seen orthopedic continue conservative manage ment no surgical repair bilateral sling with no weightbearing patient required physical therapy. _Close head trauma with left forehead bruise: No sign of bleed and did not have any symptoms afterward no head concussion. _Severely abnormal liver function test: Will be going for an ultrasound of the liver this is can be liver shock syndrome if all subtle with no major abnormality will be fine if not might require further management including CT or biopsy of the liver. _A-fib with RVR: Pulse rate on monitor seems to do well continue beta-blair titrate dose higher if she still tachycardic from her pain. Having to have a longer-term heart monitor to be beneficial. _Atherosclerotic heart disease post [place] with stent placement: Has been on secondary prevention remain on statin, aspirin, anticoagulation along with beta- blair. No chest pain or angina. _Hypothyroidism: Continue both levothyroxine along with Cytomel. _Allergy: Has been on loratadine and Singulair on regular basis and apparently it is working good for her. _Ischemic cardiomyopathy with ejection fraction of 45%: Will hold off on diuretics for now till after the clearance with her workup for syncope in the meanwhile continue isosorbide mononitrate, Eliquis, metoprolol she is not on any ARB. Mostly his blood pressure still little low. _Mild mitral regurgitation: Still on medical management. _Hyperglycemia: No official diagnosis of diabetes, Accu-Chek with sliding scale coverage will be done for now. Prognosis: Fair. Discharge planning: After complete ultrasound of liver function test if all negative especially if she is cleared from cardiology and neurology standpoint she will be able to probably to be discharged to rehab today with a quick follow-up with cardiology and orthopedic.. Objective - Vital Signs Vital signs: Vital Signs Temp 97.5 F L 07/26/23 04:00 Pulse 97 07/26/23 04:00 Resp 17 07/26/23 04:00 BP 148/74 07/26/23 04:00 Pulse Ox 97 07/26/23 04:00 FiO2 Intake & Output 07/25/23 07/25/23 07/26/23 06:59 18:59 06:59 Intake Total 442 Output Total 200 200 300 Balance -200 242 -300 Weight 72.575 kg Intake: Oral 442 Output: Urine 200 200 300 Other: Voiding Method Indwelling Catheter Indwelling Catheter External Catheter # Voids 1 1 - Labs CBC & Chem 7: 07/25/23 08:47 07/25/23 08:47 Labs: Abnormal Lab Results - Last 24 Hours (Table) 07/25/23 07/25/23 07/25/23 Range/Units 08:47 11:21 16:20 Sodium 135 L (137-145) mmol/L Carbon Dioxide 21 L (22-30) mmol/L BUN 24 H (7-17) mg/dL Glucose 165 H (74-99) mg/dL POC Glucose (mg/dL) 143 H 127 H (70-110) mg/dL AST 815 H (14-36) U/L ALT 667 H (4-34) U/L Alkaline Phosphatase 241 H (38-126) U/L Total Protein 6.1 L (6.3-8.2) g/dL Albumin 3.2 L (3.5-5.0) g/dL 07/25/23 Range/Units 20:52 Sodium (137-145) mmol/L Carbon Dioxide (22-30) mmol/L BUN (7-17) mg/dL Glucose (74-99) mg/dL POC Glucose (mg/dL) 122 H (70-110) mg/dL AST (14-36) U/L ALT (4-34) U/L Alkaline Phosphatase (38-126) U/L Total Protein (6.3-8.2) g/dL Albumin (3.5-5.0) g/dL
--- NOTE | 2023-07-27 06:33 | P.DS ---
Providers Date of admission: 07/23/23 19:31 Attending physician: Ricky Avila Consults: 07/23/23 18:33 Consult Physician Routine Consulting Provider: Zay Messer Consult Reason/Comments: syncope Do you want consulting provider notified?: Yes Consult Physician Routine Consulting Provider: Rj Torres Consult Reason/Comments: humerus fractures Do you want consulting provider notified?: Yes 07/24/23 06:10 Consult Physician Routine Consulting Provider: Kirt Ferreira Consult Reason/Comments: Syncope Do you want consulting provider notified?: Yes Primary care physician: [facility] Course: HISTORY OF PRESENT ILLNESS: 88-year-old one of our office patient with past history of coronary artery disease, post [place], hypertension, hyperlipidemia, history of atrial fibrillation with rapid ventricular response, post angioplasty and stent placement, history of osteoporosis, hypothyroidism, hyperlipidemia, generalized osteoarthritis. She was transferred from the emergency department at [facility] for bilateral humeral fracture she had apparently syncopal episode: Ground landed on both arms. Fracture both humerus and developed to have significant pain in both sides, also had trauma to the left forehead which apparently brain scan was done at [facility] and did not show any bleed.. Was placed in a sling and has syncopal episode not will explain without any seizure. She was requested to be transferred by [facility] hospitalist group to [facility] will be seen cardiology and orthopedic. Patient continued to have severe pain and discomfort she does not remember what happened exactly except could not protect herself with her syncopal episode as drop in causing her to have significant episode with no other trauma no head trauma beside her upper extremity. 07/25/2023: Patient was seen urology she been followed for ischemic cardiomyopathy along with A-fib along with coronary artery disease and likely change with arrhythmia and hypertension. Her Imdur was decreased to 30 mg twice a day and if continue to be tachycardic will increase her beta-blair. Also patient will have orthostatic change at this point. Patient also seen neurology order an MRI of the brain along with an EEG awaiting for final with cardiology consultation the patient been treated for A-fib so far no major obvious reason for her syncopal episode to explain this event. Most likely patient require little blood longer-term heart monitor whether 30 days heart monitor or loop recorder but will continue to watch her hemodynamic status carefully specially after surgery.From orthopedic standpoint she seen Dr. Torres who found displaced right three-part proximal humerus fracture, minimally displaced left 2 part proximal humerus fracture with recommendation to do nonsurgical treatment for both proximal humerus fracture she should be strictly nonweightbearing on both upper extremity in sling to have follow-up office every 1 to 2 weeks for monitor for improvement of the fracture with time.. Will continue pain management and when patient is more stable she can probably be discharged not been able to move or use her upper extremity and will probably require to go to SNF center. Will consult social work therapist and prepare for it. 07/26/2023: Slightly with abnormal liver function test, will repeat liver function test and abdominal ultrasound today if all negative and no abnormality require any attention patient still able to probably go to rehab in the afternoon today otherwise if there is any abnormality further attention might be needed. Because of the syncopal episode this is still can be liver shock syndrome initially created problem and it resolved. 07/27/2023: Ultrasound of the liver was delayed till today. Patient seen cardiology who agree with her signs and symptoms at this point she is stable not able to find any logistic reason for her syncope they agree to increase her Lopressor up to 50 mg twice a day because she kept having slight tachycardia. Continue to have significant abnormal liver function test which patient is going to have ultrasound and repeat liver function test this morning. Also patient se en neurology which could not come with any conclusion to why patient had syncope was post to go for an MRI of the brain but patient had pain and stimulator not compatible with MRI. Patient was considered for loop recorder which might be done before her discharge. Also patient seen orthopedic with her bilateral humerus fracture continue sling with no pressure or weight on it and the believe this can heal over time. If not might require to have surgery. Patient will be stable to be discharged to SNF hopefully today. REVIEW OF SYSTEMS: CONSTITUTIONAL: Well-developed no acute respiratory distress. EYES: No icterus sclerae, no conjunctivitis. EARS, NOSE, MOUTH, THROAT, and FACE: No sore throat, lymphadenopathy, carotid bruits or deformity. RESPIRATORY: No SOB cough or wheezes. CARDIOVASCULAR: No chest pain or angina positive palpitation. GASTROINTESTINAL: No Abd pain, Nausea or vomiting, no Diarrhea or constipation, No GI Bleed, no distention or masses. GENITOURINARY: Negative for Hematuria or UTI, no kidney stones. INTEGUMENT/BREAST: Negative for any muscular injury with mild osteoarthritis.. HEMATOLOGIC/LYMPHATIC: Negative for bleed or purpura. MUSCULOSKELTAL: Bilateral upper extremity pain and discomfort with slight swelling both arm in sling. NEURLOGICAL: No LOC, Sz or syncope, blurred vision dizziness or abnormality.. BEHAVIORAL/PSYCH: Negative. ENDOCRINE: Negative. PHYSICAL EXAMINATION: General Appearance: Alert, cooperative, no distress, appears stated age. No sign of head trauma. Neck HEENT: Supple, no lymphadenopathy, no thyroid enlargement, no carotid bruits. Lungs: Clear to auscultation without crackles or wheezes no rhonchi, no deformity. Chest Wall: Decreased expansion with deep inspiration no tenderness and no deformity was found on exam, no costochondral pain or discomfort. Heart: Irregular rate and rhythm, S1, S2 positive systolic murmur. Back: Symmetric, no curvature, ROM normal, no CVA tenderness. Slight scoliosis. Abdomen: Soft, non-tender, bowel sounds active all four quadrants, no masses, no organomegaly. Extremities: Lower extremity with generalized arthritis, very trace edema in the lower part of her leg. Upper extremity both are in sling with significant pain discomfort and swelling in the upper part of her humerus area. Pulses: 2+ and symmetric. Skin: Skin color, texture, tugor normal, no rashes or lesions. Neurologic: Alert oriented x3 cranial nerves II through XII intact, no motor deficit, no abnormal balance or gait. ASSESSMENT AND PLAN: _Syncopal episode: Still seeing cardiology neurology no major workup decide continue to watch her hemodynamic status and orthostatic change patient will require probably longer-term heart monitor, EEG of the brain was negative, patient will be having loop recorder monitor no MRI can be done with her pain stimulator. _A-fib and tachycardia: Metoprolol was adjusted up to 50 mg twice a day_, remain on anticoagulation. _Bilateral humerus fracture: She is seen orthopedic continue conservative management no surgical repair bilateral sling with no weightbearing patient required physical therapy. Continue conservative management and frequent follow-up with orthopedic in the next few weeks. _Close head trauma with left forehead bruise: No sign of bleed and did not have any symptoms afterward no head concussion. _Severely abnormal liver function test: Still liver function test and ultrasound are done today. _A-fib with RVR: Pulse rate on monitor seems to do well continue beta-blair titrate dose higher if she still tachycardic from her pain. Having to have a longer-term heart monitor to be beneficial. _Atherosclerotic heart disease post [place] with stent placement: Has been on sec ondary prevention remain on statin, aspirin, anticoagulation along with beta- blair. No chest pain or angina. _Hypothyroidism: Continue both levothyroxine along with Cytomel. _Allergy: Has been on loratadine and Singulair on regular basis and apparently it is working good for her. _Ischemic cardiomyopathy with ejection fraction of 45%: Will hold off on diuretics for now till after the clearance with her workup for syncope in the meanwhile continue isosorbide mononitrate, Eliquis, metoprolol she is not on any ARB. Mostly his blood pressure still little low. Continue to maximize medical management. _Mild mitral regurgitation: Still on medical management. _Hyperglycemia: No official diagnosis of diabetes, Accu-Chek with sliding scale coverage will be done for now. With repeat blood sugar there is no hypoglycemia at this point and patient blood sugar is in the low 100s. When she goes to SNF will DC insulin with NovoLog. Prognosis: Fair. Discharge planning: Liver ultrasound to be done today, loop recorder monitor will be done as well. Review her medication her metoprolol was titrated and increased to 50 mg twice a day. No sign of any major ventricular tachycardia or arrhythmia on her ekg monitor at this point. Hopefully patient will be able to be discharged to rehab today. Hospital course: Patient was admitted With syncopal episode had fallen face down had slight head trauma and ended up fracturing both of her humerus. She mated to the emergency department at [facility] and was transferred to [facility] for service of orthopedic. Patient was seen by orthopedic decide after study to kind of fracture that she does not to go for any intervention she will be having conservative management with sling of both arms with no weightbearing for few weeks while she is having series of x-ray to see the improvement of her nondisplaced fracture if become more problem might require to have surgery. Workup for her syncope including ekg monitor along with echocardiogram seeing cardiology regular basis EEG and originally ordered an MRI of the brain after the CAT scan did not show any abnormality patient could not go for an MRI because of pain the stimulator not compatible with MRI at this point. She had mild tachycardia require increase her metoprolol to 50 mg twice a day which patient has done well with it. Also suspicion for hypoglycemia could not find any evidence of hypoglycemia at this point patient blood sugar remained above 100. Neurology and cardiology agreed to have loop recorder monitor. Patient had significant abnormal liver function test most likely from shock liver syndrome with the cause of her syncope and the hypoperfusion she is having ultrasound of the liver along with repeat liver function test before her di scharge to SNF today. Patient pain is well-managed at this point and she will be ready to be discharged to SNF for rehab today. Time spent on discharging patient was over 42 minutes. Patient Condition at Discharge: Fair Plan - Discharge Summary Discharge Rx Participant: No New Discharge Prescriptions: New Metoprolol Tartrate [Lopressor] 50 mg PO BID tab traMADol HCl [Ultram] 50 mg PO QID #12 tab Ondansetron [Zofran] 4 mg PO Q8HR PRN tab PRN Reason: Nausea And Vomiting Continue Apixaban [Eliquis] 2.5 mg PO BID Montelukast [Singulair] 10 mg PO DAILY Levothyroxine Sodium 112 mcg PO DAILY Furosemide [Lasix] 20 mg PO DAILY Albuterol Inhaler [Ventolin Hfa Inhaler] 2 puff INHALATION RT-QID PRN PRN Reason: Shortness Of Breath Isosorbide Mononitrate ER [Imdur] 30 mg PO BID Loratadine [Claritin] 10 mg PO DAILY Potassium Chloride ER [K-Dur 10] 10 meq PO DAILY Sertraline [Zoloft] 100 mg PO DAILY Liothyronine Sodium [Cytomel] 5 mcg PO DAILY Hydrocortisone Oint [Hydrocortisone 2.5% Oint] 1 applic TOPICAL BID Discontinued Metoprolol Tartrate 25 mg PO BID Discharge Medication List Apixaban [Eliquis] 2.5 mg PO BID 09/29/22 [History] Furosemide [Lasix] 20 mg PO DAILY 09/29/22 [History] Levothyroxine Sodium 112 mcg PO DAILY 09/29/22 [History] Liothyronine Sodium [Cytomel] 5 mcg PO DAILY 09/29/22 [History] Montelukast [Singulair] 10 mg PO DAILY 09/29/22 [History] Potassium Chloride ER [K-Dur 10] 10 meq PO DAILY 09/29/22 [History] Sertraline [Zoloft] 100 mg PO DAILY 09/29/22 [History] Albuterol Inhaler [Ventolin Hfa Inhaler] 2 puff INHALATION RT-QID PRN 02/10/23 [History] Isosorbide Mononitrate ER [Imdur] 30 mg PO BID 02/10/23 [History] Hydrocortisone Oint [Hydrocortisone 2.5% Oint] 1 applic TOPICAL BID 07/23/23 [History] Loratadine [Claritin] 10 mg PO DAILY 07/23/23 [History] Metoprolol Tartrate [Lopressor] 50 mg PO BID tab 07/27/23 [Rx] Ondansetron [Zofran] 4 mg PO Q8HR PRN tab 07/27/23 [Rx] traMADol HCl [Ultram] 50 mg PO QID #12 tab 07/27/23 [Rx] Follow up Appointment(s)/Referral(s): Yessi Mancia MD [Primary Care Provider] - 1-2 Days Tito Patel MD [STAFF PHYSICIAN] - 1 Week Discharge Disposition: TRANSFER TO SNF/ECF
[2023-07-27 08:00] LABS: Basophils % (A) 0 %; Eosinophils # (A) 0.2 k/uL (0-0.7); Eosinophils % (A) 2 %; HCT 38.5 % (34.0-46.0); HGB 12.6 gm/dL (11.4-16.0); Lymphocytes # (A) 1.2 k/uL (1.0-4.8); Lymphocytes % (A) 10 %; MCH 31.4 pg (25.0-35.0); MCHC 32.6 g/dL (31.0-37.0); MCV 96.2 fL (80.0-100.0); Mean Platelet Volume 9.9; Monocytes # (A) 1.1 k/uL (0-1.0); Monocytes % (A) 10 %; Neutrophils # (A) 8.5 k/uL (1.3-7.7); Neutrophils % (A) 75 %; Platelet Count 291 k/uL (150-450); RDW 14.1 % (11.5-15.5); WBC 11.3 k/uL (3.8-10.6)
[2023-07-27 08:33] LABS: ALT 285 U/L (4-34); AST 113 U/L (14-36); African American GFR (CKD) >90 (>60 ml/min/1.73 sqM); Alkaline Phosphatase 190 U/L (38-126); Anion Gap 6 mmol/L; Blood Urea Nitrogen 22 mg/dL (7-17); Calcium 8.8 mg/dL (8.4-10.2); Carbon Dioxide 22 mmol/L (22-30); Chloride 105 mmol/L (98-107); Glucose 118 mg/dL (74-99); Non-African American GFR(CKD) 83 (>60 ml/min/1.73 sqM); Potassium 4.9 mmol/L (3.5-5.1); Sodium 133 mmol/L (137-145); Total Bilirubin 1.1 mg/dL (0.2-1.3)
[2023-07-27 10:08] VITALS: RESP 18
[2023-07-27 11:57] LABS: Glucose,Whole Blood 107 mg/dL (70-110)
[2023-07-27 12:57] VITALS: BP 98/64; PULSE 94; TEMP 98.1
--- NOTE | 2023-07-27 13:06 | US ---
EXAMINATION TYPE: US abdomen complete DATE OF EXAM: 07/27/2023 COMPARISON: NONE CLINICAL INDICATION: Female, 88 years old with history of Abnormal LFT; Abnormal labs GB removed. Exa m limited patient had 2 broken arms she feel unable to move well. TECHNIQUE: Multiple sonographic images of the abdomen are obtained. FINDINGS: EXAM MEASUREMENTS: Liver Length: 13.1 cm Gallbladder Wall: Surgically absent CBD: 1.3 cm Spleen: 8.3 cm Right Kidney: 9.8 x 4.3 x 4.6 cm Left Kidney: obscured by bowel gas PHYSICIAN GENERAL INTERNAL MEDICINE NOTES: Pancreas: Obscured by bowel gas Liver: Increased attenuation Gallbladder: Surgically absent Evidence for sonographic Ewing's sign: No CBD: Dilated Spleen: wnl Right Kidney: No hydronephrosis or masses seen Left Kidney: Obscured by overlying bowel gas Upper IVC: wnl Abd Aorta: wnl The liver is homogenous. The intrahepatic portion of the IVC and proximal abdominal aorta are within normal limits. There is no evidence of cholelithiasis. The visualized portions of the pancreas are homogenous. The spleen is unremarkable. Kidneys are symmetric and free of hydronephrosis. No con l lesions are seen. IMPRESSION: Hepatic steatosis.
== END 2023-07-27 13:42 | DRG 441 ==
LOC: EC 17:43 → 3SCARD 19:31
PROVIDERS: ADMIT Internal Medicine Geriatric Medicine; ATTEND Internal Medicine Geriatric Medicine
DX: K72.00 Acute and subacute hepatic failure without coma (principal); S42.222 2-part displaced fracture of surgical neck of left humerus; S42.23 3-part fracture of surgical neck of humerus; I48.21 Permanent atrial fibrillation; E03.9 Hypothyroidism, unspecified; I10 Essential (primary) hypertension; I08.0 Rheumatic disorders of both mitral and aortic valves; R55 Syncope and collapse; I25.10 Atherosclerotic heart disease of native coronary artery without angina pectoris; I25.5 Ischemic cardiomyopathy; M81.0 Age-related osteoporosis without current pathological fracture; E78.5 Hyperlipidemia, unspecified; M15.9 Polyosteoarthritis, unspecified; S00.83XA Contusion of other part of head, initial encounter; J30.1 Allergic rhinitis due to pollen; R73.9 Hyperglycemia, unspecified; W18.39XA Other fall on same level, initial encounter; Z95.5 Presence of coronary angioplasty implant and graft; I25.2 Old myocardial infarction; Z79.01 Long term (current) use of anticoagulants; Z79.890 Hormone replacement therapy; Z79.899 Other long term (current) drug therapy; Z91.041 Radiographic dye allergy status; Z88.2 Allergy status to sulfonamides; Z97.8 Presence of other specified devices
CPT/HCPCS: 36415; 70450; 71045; 76700; 80048; 80053; 81001; 83880; 84484; 85025; 85027; 85610; 85730; 93005; 93308; 93880; 94760; 95816; 96374; 96376; 99285